=== PATIENT | male | born 1955 | race Caucasian/White ===

== ENCOUNTER 2020-11-13 15:34 | Emergency (ER) | payer MEDICARE ==
[~2020-11-13] VITALS: Ht 188 cm; Wt 95.2 kg
[2020-11-13] MEDS ORDERED: Cephalexin500 MG PO (16:39)
== END 2020-11-13 17:06 | disposition home or self-care (01) ==
LOC: ER 15:34
DX: S81.812A Laceration without foreign body, left lower leg, initial encounter (principal); Z88.5 Allergy status to narcotic agent; W29.3XXA Contact with powered garden and outdoor hand tools and machinery, initial encounter; Y92.821 Forest as the place of occurrence of the external cause
CPT/HCPCS: 12001; 90471; 90714; 99282-25; A9270

== ENCOUNTER 2020-11-28 16:01 | Emergency (ER) | payer MEDICARE ==
[~2020-11-28] VITALS: Ht 188 cm; Wt 99.8 kg
[~2020-11-28 16:01] MED LIST: Cephalexin500 MG PO
== END 2020-11-28 16:21 | disposition home or self-care (01) ==
LOC: ER 16:01
DX: S81.812D Laceration without foreign body, left lower leg, subsequent encounter (principal); W29.3XXD Contact with powered garden and outdoor hand tools and machinery, subsequent encounter

== ENCOUNTER 2024-06-25 15:49 | Emergency (ER) | payer OTHER ==
[~2024-06-25] VITALS: Ht 188 cm; Wt 90.7 kg
[2024-06-25 16:18] LABS: BASOPHILS ABSOLUTE AUTO 0.05 K/mm3 (0.00-0.23); BASOPHILS PERCENT AUTO 1 % (0-2); EOSINOPHILS ABSOLUTE AUTO 0.12 K/mm3 (0.00-0.68); EOSINOPHILS PERCENT AUTO 2 % (0-6); Hematocrit 40.5 % (37.0-53.0); Hemoglobin 12.8 g/dL (13.5-17.5); IMMATURE GRAN ABSOLUTE AUTO 0.01 K/mm3 (0.00-0.10); IMMATURE GRAN PERCENT AUTO 0 % (0-1); LYMPHOCYTES ABSOLUTE AUTO 1.71 K/mm3 (0.84-5.20); LYMPHOCYTES PERCENT AUTO 27 % (21-46); MONOCYTES ABSOLUTE AUTO 0.37 K/mm3 (0.16-1.47); MONOCYTES PERCENT AUTO 6 % (4-13); Mean Corpuscular HGB 29.9 pg (26.0-34.0); Mean Corpuscular HGB Conc 31.6 g/dL (31.5-36.5); Mean Corpuscular Volume 95 fL (80-100); Mean Platelet Volume 9.4 fL (9.1-12.4); NEUTROPHILS ABSOLUTE AUTO 3.99 K/mm3 (1.96-9.15); NEUTROPHILS PERCENT AUTO 64 % (41-73); Platelet Count 244 K/mm3 (150-400); RDW Coefficient Variation 14.9 % (11.7-14.2); RDW Standard Deviation 50.8 fL (35.1-46.3); Red Blood Cell Count 4.28 M/mm3 (4.30-5.90); White Blood Cell Count 6.25 K/mm3 (4.00-11.30)
[2024-06-25 16:34] LABS: C-REACTIVE PROTEIN, EXT RANGE 0.691 mg/dL (0.000-0.300)
[2024-06-25 16:36] LABS: Albumin, Blood 3.3 g/dL (3.4-5.0); Albumin/Globulin Ratio 0.7 (0.8-1.8); Bilirubin, Total 0.5 mg/dL (0.1-1.0); Bun/Creatinine Ratio 16.4 (12.0-20.0); Calcium, Blood 8.9 mg/dL (8.5-10.1); Creatinine, Blood 1.52 mg/dL (0.60-1.20); Globulin, Blood 4.5 g/dL (2.2-4.0); Potassium, Blood 3.8 mmol/L (3.5-5.5); Total Protein, Blood 7.8 g/dL (6.4-8.2)
[2024-06-25 18:00] VITALS: BP 158/106
== END 2024-06-25 18:12 | disposition home or self-care (01) ==
LOC: ER 15:49
PROVIDERS: Physician Assistant
DX: H54.61 Unqualified visual loss, right eye, normal vision left eye (principal); Z88.5 Allergy status to narcotic agent
CPT/HCPCS: 70450; 80053; 85025; 86140; 93005; 93010; 93971; 99284-25

== ENCOUNTER 2024-07-12 10:48 | Inpatient (IN) | payer OTHER ==
[~2024-07-12] VITALS: Ht 188 cm; Wt 96.0 kg
[2024-07-12] VITALS (35 sets, daily range): BP systolic 123–158; BP diastolic 97–128
[2024-07-12] MEDS ORDERED: Heparin Sodium 5000 Units/ML 1ML MDV IV ONE (12:05)
[2024-07-12] MEDS ORDERED: Midazolam HCl 1MG / ML 2ML Vial ONE ×2 (12:10→13:29)
[2024-07-12] MEDS ORDERED: FentaNYL Citrate 50 MCG/ML 2 ML Injection ONE ×2 (12:10→13:29)
[2024-07-12] MEDS ORDERED: Heparin Sodium 1000 Units/ML 10ML MDV ONE ×2 (12:11→14:39)
[2024-07-12] MEDS ORDERED: NS 1,000 ML IV ONE ×2 (12:11→14:39)
[2024-07-12 12:14] LABS: Calcium, Ionized (POC) 1.11 mmol/L (1.10-1.46); Chloride (POC) 107 mmol/L (98-108); Creatinine (POC) 1.8 mg/dL (0.8-1.3); Glucose (ISTAT POC) 119 mg/dL (70-99); Hemoglobin (POC) 12.6 g/dL (13.5-17.5); Potassium (POC) 4.6 mmol/L (3.5-5.5); Sodium (POC) 139 mmol/L (135-148); Total CO2 (POC) 21 mmol/L (21-32)
[2024-07-12 12:14] LABS: BASOPHILS ABSOLUTE AUTO 0.04 K/mm3 (0.00-0.23); BASOPHILS PERCENT AUTO 0 % (0-2); EOSINOPHILS ABSOLUTE AUTO 0.02 K/mm3 (0.00-0.68); EOSINOPHILS PERCENT AUTO 0 % (0-6); Hematocrit 38.3 % (37.0-53.0); Hemoglobin 12.1 g/dL (13.5-17.5); IMMATURE GRAN ABSOLUTE AUTO 0.05 K/mm3 (0.00-0.10); IMMATURE GRAN PERCENT AUTO 1 % (0-1); LYMPHOCYTES ABSOLUTE AUTO 1.45 K/mm3 (0.84-5.20); LYMPHOCYTES PERCENT AUTO 15 % (21-46); MONOCYTES ABSOLUTE AUTO 0.58 K/mm3 (0.16-1.47); MONOCYTES PERCENT AUTO 6 % (4-13); Mean Corpuscular HGB 30.2 pg (26.0-34.0); Mean Corpuscular HGB Conc 31.6 g/dL (31.5-36.5); Mean Corpuscular Volume 96 fL (80-100); Mean Platelet Volume 10.3 fL (9.1-12.4); NEUTROPHILS ABSOLUTE AUTO 7.29 K/mm3 (1.96-9.15); NEUTROPHILS PERCENT AUTO 77 % (41-73); Platelet Count 226 K/mm3 (150-400); RDW Coefficient Variation 15.1 % (11.7-14.2); RDW Standard Deviation 53.1 fL (35.1-46.3); Red Blood Cell Count 4.01 M/mm3 (4.30-5.90); White Blood Cell Count 9.43 K/mm3 (4.00-11.30)
[2024-07-12 12:35] LABS: Albumin/Globulin Ratio 0.7 (0.8-1.8); Bilirubin, Total 0.6 mg/dL (0.1-1.0); Bun/Creatinine Ratio 21.1 (12.0-20.0); Calcium, Blood 8.8 mg/dL (8.5-10.1); Creatinine, Blood 1.61 mg/dL (0.60-1.20); Globulin, Blood 4.3 g/dL (2.2-4.0); Potassium, Blood 4.7 mmol/L (3.5-5.5); Total Protein, Blood 7.3 g/dL (6.4-8.2)
[2024-07-12] MEDS ORDERED: Ticagrelor 90 MG TABLET ONE (12:50)
[2024-07-12] MEDS ORDERED: NS 1,000 ML IV SCH (12:50)
[2024-07-12] MEDS ORDERED: Ondansetron HCl 2 MG / ML 2ML Vial IV PRN (12:50)
[2024-07-12] MEDS ORDERED: Tirofiban HCL Monohydrate 3.75 MG/15 ML Vial ONE (12:50)
[2024-07-12] MEDS ORDERED: TraZODone HCl 50 MG Tab PO PRN (12:50)
[2024-07-12] MEDS ORDERED: Acetaminophen 325 MG TABLET PO PRN (12:55)
[2024-07-12] MEDS ORDERED: Tirofiban HCL M-Hyd/NS 250 ML IV ONE (13:15)
[2024-07-12] MEDS ORDERED: Furosemide 10 MG / ML 2ML Vial ONE (13:38)
[2024-07-12] MEDS ORDERED: Verapamil HCL 2.5 MG/ML 2ML Injection ONE (14:38)
[2024-07-12] MEDS ORDERED: Nitroglycerin 2 MG/20 ML BTL ONE (14:39)
[2024-07-12] MEDS ORDERED: NS 250 ML IV ONE (14:39)
[2024-07-12] MEDS ORDERED: Tirofiban HCL M-Hyd/NS 250 ML IV SCH (15:10)
[2024-07-12] MEDS ORDERED: Heparin Sodium,Porcine 5,000 UNIT/0.5 ML SDV SC ONE (15:29)
--- NOTE | 2024-07-12 15:47 | NUR ---
ADMIT PT ARRIVED TO ICU 12 VIA BED S/P ASSISTANT SITE MANAGER AT 1430. PT IS AWAKE, ALERT, AND ORIENTED, BUT DROWSEY. PT ANSWERS MOST QUESTIONS APPROPRIATELY. PT DENIES CHEST PAIN OR PRESSURE. TR BAND IN PLACE TO RIGHT RADIAL SITE. VITAL SIGNS STABLE. PT ON 4L O2 NC INITIALLY. TITRATED DOWN TO ROOM AIR. AGGRASTAT INFUSING AT 0.075 MCG/KG/MIN UPON ARRIVAL AND IS TO BE CONTINUED PER DR SPRAGUE. EKG DONE, REVIEWED AND PLAN OF CARE DISCUSSED WITH DR SPRAGUE AT BEDSIDE WITH PT AND PT DAUGHTER. PT ABLE TO USE URINAL TO VOID. WILL CONTINUE TO MONITOR.
[2024-07-12] MEDS ORDERED: Furosemide 10 MG/ML 4ML Vial IV ONE ×2 (16:55→22:50)
--- NOTE | 2024-07-12 16:56 | NUR ---
SOB PT COMPLAINS OF INCREASING SOB, SPO2 >94% ON 2L 02 NC. PT WITH WHEEZING AND CRACKLES NOTED ON AUSCULTATION. DR BARKER NOTIFIED. LASIX AND BD PROTOCOL ORDERED. WILL CONTINUE TO MONITOR.
[2024-07-12] MEDS ORDERED: Albuterol 2.5 MG/3 ML VIAL INH PRN (17:00)
--- NOTE | 2024-07-12 18:16 | NUR ---
SHIFT SUMMARY NO ACUTE CHANGES AT THIS TIME. PT REPORTS LESS SOB AFTER BREATHING TX AND LASIX. SEE PREVIOUS NOTES. VITAL SIGNS STABLE AT THIS TIME. AGGRASTAT CONTINUES INFUSING AT 0.075 MCG/KG/MIN. PT DENIES CHEST PAIN. TR BAND TO RIGHT RADIAL SITE REMAINS IN PLACE WITHOUT BRUISING, HEMATOMA, OR OOZING NOTED. WILL CONTINUE TO MONITOR AND REPORT OFF TO ONCOMING RN.
--- NOTE | 2024-07-12 19:18 | NUR ---
ASSESSMENT/ASSUMED CARE PT SITTING UP IN BED. A&O. DENIES PAIN OF ANY KIND AT THIS TIME. STATES,"I'M FEELING MUCH BETTER. ALMOST GOOD ENOUGH TO GO HOME". LUNGS COARSE THROUGHOUT ON 2 LITER O2 VIA NC. PT DENIES SOB. STATES,"THAT IS BETTER AFTER THE MEDS THEY GAVE ME THAT ARE MAKING ME PEE". DRY NONPRODUCTIVE COUGH AT TIMES. STATES,"SMOKERS COUGH". HEART RATE REGULAR SINUS TACH IN THE 100'S WITH PVC'S. HYPERTENSION NOTED. BT+ ABD SOFT AND NONTENDER. DENIES N/V. TAKING PO FLUIDS. IV 18G TO LEFT AC SALINE LOCKED. ABLE TO DRAW BLOOD AND FLUSH WITHOUT DIFFICULTY. IV RIGHT AC WITH AGGRASTAT AT 8.73 ML/HR UNTIL 0200. SITE CLEAR. PT VOIDING CLEAR YELLOW URINE. MOVING SELF IN BED. RIGHT WRIST WITH TR BAND ON. SITE CLEAR NO BLEEDING OR HEMATOMA NOTED. ARM BOARD ON.
--- NOTE | 2024-07-12 19:28 | NUR ---
TR BAND REMOVED 2 CC AIR. NO BLEEDING OR HEMATOMA
--- NOTE | 2024-07-12 20:16 | NUR ---
TR BAND REMOVED 2 CC AIR FROM RIGHT WRIST TR BAND. NO BLEEDING OR HEMATOMA NOTED
--- NOTE | 2024-07-12 20:55 | NUR ---
TR BAND REMOVED 2 CC AIR FROM TR BAND. NO BLEEDING OR HEMATOMA
[2024-07-12] MEDS ORDERED: Famotidine 10 MG/ML 2ML Vial IV SCH (21:00)
[2024-07-12] MEDS ORDERED: Docusate Sodium 100 MG Cap PO SCH (21:00)
[2024-07-12] MEDS ORDERED: Sennosides 8.6 MG Tab PO SCH (21:00)
--- NOTE | 2024-07-12 22:09 | NUR ---
TR BAND REMOVED 2 CC AIR FROM RIGHT WRIST TR BAND. NO BLEEDING OR HEMATOMA NOTED
--- NOTE | 2024-07-12 22:34 | NUR ---
HYPERTENSION CALL TO DR SPRAGUE REGARDING HYPERTENSION. ORDER OBTAINED FOR METOPROLOL XL 25MG DAILY FIRST DOSE NOW.
[2024-07-12] MEDS ORDERED: Metoprolol Succinate 25 MG TABCR PO SCH (22:35)
--- NOTE | 2024-07-12 22:49 | NUR ---
SOB/TR BAND PT MED WITH METPROLOL XL 25 MG FOR HYPERTENSION. C/O SOB. RT CALLED FOR BREATHING TX. LUNGS CONT COARSE. LASIX 40 MG ORDERED. RIGHT TR BAND 1.5 CC AIR REMOVED. BALLOON COMPLETELY DEFLATED. NO BLEEDING OR HEMATOMA.
[2024-07-13] VITALS (87 sets, daily range): BP systolic 96–151; BP diastolic 55–121
--- NOTE | 2024-07-13 02:16 | NUR ---
AGGRASTAT OFF. TR BAND REMOVED AND DRSG APPLIED. PT SITTING UP IN BED EATING A SNACK.
[2024-07-13 03:15] LABS: BASOPHILS ABSOLUTE AUTO 0.04 K/mm3 (0.00-0.23); BASOPHILS PERCENT AUTO 0 % (0-2); EOSINOPHILS PERCENT AUTO 0 % (0-6); Hematocrit 34.7 % (37.0-53.0); Hemoglobin 11.4 g/dL (13.5-17.5); IMMATURE GRAN ABSOLUTE AUTO 0.05 K/mm3 (0.00-0.10); IMMATURE GRAN PERCENT AUTO 0 % (0-1); LYMPHOCYTES ABSOLUTE AUTO 1.13 K/mm3 (0.84-5.20); LYMPHOCYTES PERCENT AUTO 9 % (21-46); MONOCYTES ABSOLUTE AUTO 1.11 K/mm3 (0.16-1.47); MONOCYTES PERCENT AUTO 8 % (4-13); Mean Corpuscular HGB 30.6 pg (26.0-34.0); Mean Corpuscular HGB Conc 32.9 g/dL (31.5-36.5); Mean Corpuscular Volume 93 fL (80-100); Mean Platelet Volume 10.3 fL (9.1-12.4); NEUTROPHILS ABSOLUTE AUTO 10.94 K/mm3 (1.96-9.15); NEUTROPHILS PERCENT AUTO 82 % (41-73); Platelet Count 222 K/mm3 (150-400); RDW Coefficient Variation 15.2 % (11.7-14.2); RDW Standard Deviation 51.9 fL (35.1-46.3); Red Blood Cell Count 3.72 M/mm3 (4.30-5.90); White Blood Cell Count 13.27 K/mm3 (4.00-11.30)
[2024-07-13 03:35] LABS: Albumin, Blood 2.8 g/dL (3.4-5.0); Albumin/Globulin Ratio 0.7 (0.8-1.8); Bilirubin, Total 0.7 mg/dL (0.1-1.0); Bun/Creatinine Ratio 19.2 (12.0-20.0); Calcium, Blood 8.4 mg/dL (8.5-10.1); Creatinine, Blood 1.56 mg/dL (0.60-1.20); Globulin, Blood 3.9 g/dL (2.2-4.0); Potassium, Blood 3.6 mmol/L (3.5-5.5); Total Protein, Blood 6.7 g/dL (6.4-8.2)
--- NOTE | 2024-07-13 05:10 | NUR ---
SHIFT SUMMARY PT SITTING UP IN BED WATCHING TV. DENIES PAIN OR DISCOMFORT. STARTED ON METOPROLOL XL DURING THE NIGHT FOR HYPERTENSION WITH GOOD RESULTS. LUNGS CONT COARSE ON 2 LITERS O2 VIA NC. PT MED WITH LASIX 40 MG DUE TO SOB AND SPEAKING IN ONE WORDS SENTENCES DUE TO DYSPNEA. IMPROVED BREATHING AFTER LASIX. RESP EVEN AND NONLABORED. PRODUCTIVE COUGH WITH BLOOD TINGED SPUTUM. HEART RATE 90-110'S. PT VOIDING CLEAR YELLOW URINE. AGGRASTAT STOPPED AT 0200. TR BAND TO RIGHT WRIST RECOVERED, NO BLEEDING OR HEMATOMA NOTED. PT TAKING PO WITHOUT DIFFICULTY. REPORT TO ON COMING NURSE
[2024-07-13] MEDS ORDERED: Aspirin 81 MG Chew PO SCH (07:00)
[2024-07-13] MEDS ORDERED: Ticagrelor 90 MG TABLET PO SCH (07:00)
[2024-07-13] MEDS ORDERED: Atorvastatin 40 MG Tab PO SCH (09:00)
[2024-07-13] MEDS ORDERED: Digoxin 0.25 MG/ML 2ML Amp IV ONE (11:50)
--- NOTE | 2024-07-13 11:52 | NUR ---
RHYTHM CHANGE PT SITTING UP IN CHAIR FOR OVER 1 HOUR. PT THEN WITH RHYTHM CHANGE AND HR 160'S. ONCE PT BACK TO BED, VAGAL MANUVERS, AND CAROTID MASSAGE DONE PER DR SPRAGUE AND EKG DONE. EKG SHOWS AFIB RVR. DR SPRAGUE NOTIFIED AND ORDERS RECIEVED FOR IV DIGOXIN AND STATES HE WILL COME SEE PT IN A WHILE. PT SBP 90'S. PT REMAINS AWAKE AND ALERT. DENIES CHEST PAIN.
--- NOTE | 2024-07-13 15:02 | NUR ---
PT'S SON IN THE ROOM, STANDING UPON MY ENTERING. HAD JUST URINATED AND IT LEAKED AROUND THE CONDOM CATH. PT ASKED TO SIT DOWN WHILE EVERYTHING INCLUDING HIM, BE CLEANED UP. PT IS ABLE TO ASSIST WITH CLEAN UP AND NEW CONDOM CATH REPLACED. PT REMINDED THAT HE SHOULDN'T BE UP AND ABOUT WITHOUT ASKING FOR ASSISTANCE, HE HAD DISCONNECTED HIS BP CUFF AND PULSE OXIMETRY. ENCOURAGED TO USE HIS CALL LIGHT AND ASK FOR ASSISTANCE EVEN FOR JUST THE CORDS. PT AGREED. SON ACKNOWLEDGED INSTRUCTIONS. PRIMARY RN NOTIFIED OF SITUATION.
--- NOTE | 2024-07-13 17:36 | NUR ---
SHIFT SUMMARY PT HAS REMAINED AWAKE, ALERT, AND ORIENTED THIS SHIFT. PT FORGETFUL AT TIMES AND NEEDS REDIRECTION, BUT HAS OTHERWISE BEEN APPROPRIATE THIS SHIFT. PT IMPULSIVE AT TIMES WANTING TO GET OOB OR CHAIR. PT HAS DENIED CHEST PAIN THIS SHIFT, INCLUDING DURING EPISODE OF TACHYCARDIA. PT WITHOUT FURTHER EPISODES OF TACHYCARDIA THIS SHIFT. SEE PREVIOUS NN. VITAL SIGNS STABLE AT THIS TIME, PT ON ROOM AIR. PT TAKING IN PO INTAKE WELL. PT WITH CONDOM CATH IN PLACE AT THIS TIME WITH YELLOW URINE OUTPUT NOTED. IV'S SALINE LOCKED. PT FAMILY AT BEDSIDE THIS AFTERNOON. RIGHT RADIAL ACCESS SITE REMAINS WITH DRESSING C/D/I AND ARMBOARD IN PLACE. WILL CONTINUE TO MONITOR AND REPORT OFF TO ONCOMING RN.
[2024-07-13] MEDS ORDERED: Nicotine 21 MG PATCH TOP SCH (19:45)
[2024-07-13] MEDS ORDERED: Apixaban 5 MG Tab PO SCH (21:00)
[2024-07-13 21:18] LABS: U Amphetamine Screen Not Detected; U Barbituate Screen Not Detected; U Benzodiazapine Screen Not Detected; U Buprenorphine Screen Not Detected; U Cannabinoids Screen Not Detected; U Cocaine Screen Not Detected; U Methadone Screen Not Detected; U Methamphetamine Screen Not Detected; U Opiates Screen Not Detected; U Oxycodone Screen Not Detected; U Phencyclidine Screen Not Detected
[2024-07-13] MEDS ORDERED: LORazepam 2 MG/ML 1ML Injection IV ONE (21:40)
--- NOTE | 2024-07-13 22:31 | NUR ---
ASSUME CARE: RECIEVED REPORT FROM ANGELO JIMENES. DURING SHIFT ASSESSMENT PT A/Ox3 AND PLEASANT W/CARE. PT WANTING TO GO OUT AND SMOKE, ORDER FOR NICOTINE PATCH GIVEN. PT BECAME INCREASINGLY AGITATED AND PULLING AT LINES AND CORDS. PT BECAME MORE CONFUSED, UNABLE TO TELL US WHERE HE IS SAYING HE IS IN A HOUSE AND THAT THAT HE WANTS TO GO OUTSIDE. ORDERS FOR ONE TIME DOSE OF ATIVAN GIVEN PER DR. BROOKS. DR. DURAND CALLED ABOUT HR GOING TO 160s AND SELF RESOLVING, NO NEW ORDERS GIVEN. PT BEGAN TO HAVE HR 80s-170s, EKG TAKEN SHOWING AFIB W/RVR DR. SHELTON CALLED AND ORDERS FOR AMIODERONE GIVEN. SPO2 >90% INITIALLY ON RA, NOW ON 3L NC FOR DESAT W/SLEEP AND EXERTION. WILL UPDATE NEEDED.
[2024-07-13 23:24] LABS: Base Excess Venous -1.4 mmol/L; PCO2 Venous 35.4 mmHg (38-42); pH Blood Venous 7.42 (7.34-7.37)
[2024-07-13 23:32] LABS: BASOPHILS ABSOLUTE AUTO 0.04 K/mm3 (0.00-0.23); BASOPHILS PERCENT AUTO 0 % (0-2); EOSINOPHILS ABSOLUTE AUTO 0.02 K/mm3 (0.00-0.68); EOSINOPHILS PERCENT AUTO 0 % (0-6); Hematocrit 34.1 % (37.0-53.0); Hemoglobin 11.2 g/dL (13.5-17.5); IMMATURE GRAN ABSOLUTE AUTO 0.06 K/mm3 (0.00-0.10); IMMATURE GRAN PERCENT AUTO 1 % (0-1); LYMPHOCYTES ABSOLUTE AUTO 1.64 K/mm3 (0.84-5.20); LYMPHOCYTES PERCENT AUTO 14 % (21-46); MONOCYTES PERCENT AUTO 8 % (4-13); Mean Corpuscular HGB 30.6 pg (26.0-34.0); Mean Corpuscular HGB Conc 32.8 g/dL (31.5-36.5); Mean Corpuscular Volume 93 fL (80-100); Mean Platelet Volume 10.4 fL (9.1-12.4); NEUTROPHILS ABSOLUTE AUTO 9.39 K/mm3 (1.96-9.15); NEUTROPHILS PERCENT AUTO 77 % (41-73); Platelet Count 225 K/mm3 (150-400); RDW Standard Deviation 51.5 fL (35.1-46.3); Red Blood Cell Count 3.66 M/mm3 (4.30-5.90); White Blood Cell Count 12.15 K/mm3 (4.00-11.30)
[2024-07-13 23:55] LABS: Calcium, Blood 7.9 mg/dL (8.5-10.1); Creatinine, Blood 1.52 mg/dL (0.60-1.20); Magnesium, Blood 1.9 mg/dL (1.6-2.4); Potassium, Blood 3.7 mmol/L (3.5-5.5)
[2024-07-14] VITALS (52 sets, daily range): BP systolic 82–136; BP diastolic 62–119
[2024-07-14] MEDS ORDERED: Melatonin 5 MG Tablet PO ONE (00:50)
[2024-07-14] MEDS ORDERED: QUEtiapine Fumarate 25 MG Tab PO ONE (00:50)
--- NOTE | 2024-07-14 00:50 | NUR ---
UPDATE: PT INCREASING AGITATION, NOT REDIRECTABLE, PULLING AT LINES/CORDS, ATTEMPTING TO GET OUT OF BED STATING HE WANTS TO SMOKE, PINCHING AND HITTING AT STAFF. PT PLACED IN BILATERAL SOFT RESTRAINTS INITIALLY BUT BROKE OUT OF HIS RESTRAINTS SO TUFF CUFFS PLACED. DR. NARANJO NOTIFIED OF SOB, UNEQUAL PUPILS, PT STATED HE HAD A DETACHED RETINA A FEW WEEKS AGO, CHANGE IN RYTHM AND HR, DR. NARANJO CAME TO BEDSIDE TO EVALUATE. ORDERS GIVEN, CHEST XRAY PERFORM. WILL UPDATE NEEDED.
[2024-07-14] MEDS ORDERED: OLANZapine 10 MG Vial IM ONE ×2 (02:35→04:35)
--- NOTE | 2024-07-14 03:09 | NUR ---
UPDATE: PT CONTINUES TO BECOME INCREASINGLY AGITATED, CONFUSED, PULLING OUT IVs, AND CORDS, WANTING TO GET UP AND GO HOME DESPITE SEROQUEL AND MELATONIN MEDICATION. PT STATING " YOU FUCKING BITCH" WHEN TRYING TO REDIRECT. DR. NARANJO UPDATED ON INCREASED AGITATION, ORDER RECIEVED FOR IM ZYPREXA. RESTRAINTS REMAIN IN PLACE. WILL UPDATE NEEDED.
[2024-07-14 03:19] LABS: BASOPHILS ABSOLUTE AUTO 0.04 K/mm3 (0.00-0.23); BASOPHILS PERCENT AUTO 0 % (0-2); EOSINOPHILS ABSOLUTE AUTO 0.01 K/mm3 (0.00-0.68); EOSINOPHILS PERCENT AUTO 0 % (0-6); Hematocrit 33.3 % (37.0-53.0); Hemoglobin 11.1 g/dL (13.5-17.5); IMMATURE GRAN ABSOLUTE AUTO 0.04 K/mm3 (0.00-0.10); IMMATURE GRAN PERCENT AUTO 0 % (0-1); LYMPHOCYTES ABSOLUTE AUTO 1.37 K/mm3 (0.84-5.20); LYMPHOCYTES PERCENT AUTO 12 % (21-46); MONOCYTES ABSOLUTE AUTO 1.17 K/mm3 (0.16-1.47); MONOCYTES PERCENT AUTO 10 % (4-13); Mean Corpuscular HGB 30.7 pg (26.0-34.0); Mean Corpuscular HGB Conc 33.3 g/dL (31.5-36.5); Mean Corpuscular Volume 92 fL (80-100); Mean Platelet Volume 9.9 fL (9.1-12.4); NEUTROPHILS ABSOLUTE AUTO 9.19 K/mm3 (1.96-9.15); NEUTROPHILS PERCENT AUTO 78 % (41-73); Platelet Count 202 K/mm3 (150-400); RDW Coefficient Variation 14.9 % (11.7-14.2); RDW Standard Deviation 51.2 fL (35.1-46.3); Red Blood Cell Count 3.61 M/mm3 (4.30-5.90); White Blood Cell Count 11.82 K/mm3 (4.00-11.30)
[2024-07-14 03:36] LABS: Albumin, Blood 2.6 g/dL (3.4-5.0); Albumin/Globulin Ratio 0.7 (0.8-1.8); Bilirubin, Total 1.1 mg/dL (0.1-1.0); Calcium, Blood 7.9 mg/dL (8.5-10.1); Creatinine, Blood 1.67 mg/dL (0.60-1.20); Globulin, Blood 3.8 g/dL (2.2-4.0); Magnesium, Blood 2.2 mg/dL (1.6-2.4); Potassium, Blood 3.6 mmol/L (3.5-5.5); Total Protein, Blood 6.4 g/dL (6.4-8.2)
--- NOTE | 2024-07-14 06:12 | NUR ---
SHIFT SUMMARY: PT CONTINUES WITH BEHAVIOR DECRIBED IN PRIOR NOTES. DR. NARANJO CALLED AND UPDATED WITH PT BEHAVIOR AND SECOND DOSE OF ZYPREXA GIVEN WITH NO AFFECT, DR. NARANJO NOTIFIED, AWAITING ORDERS AT THIS TIME. PT IN AND OUT OF SINUS TACH AND AFIB W/ RVR. AMIO GTT RUNNING PER EMAR. DR. NARANJO ALSO CALLED ABOUT PT BNP, NO ORDERS RECIEVED. RESTRAINTS REMAIN IN PLACE. CALL LIGHT IN REACH AND BED IN LOWEST POSTION, BED ALARM ON. WILL REPORT TO ONCOMING RN.
--- NOTE | 2024-07-14 06:51 | NUR ---
PT IN 4 POINT TOUGH CUFFS, THREATENED TO PUNCH RN WHILE CHANGING DRESSING, AND BALLED UP LEFT HAND INTO A FIST.
[2024-07-14] MEDS ORDERED: Clopidogrel Bisulfate 75 MG Tab PO ONE (09:00)
[2024-07-14] MEDS ORDERED: Digoxin 0.25 MG Tab PO SCH (09:00)
[2024-07-14] MEDS ORDERED: Potassium Chl 10MEQ/Water100ML 100 ML IV ONE (09:35)
--- NOTE | 2024-07-14 11:11 | NUR ---
SHIFT ASSESSMENT ASSUMED CARE OF PT @ 0700, BEDSIDE REPORT RECEIVED FROM [facility] NURSE. PT INITIALLY AGITATED, IN 4 POINT RESTRAINTS. A&OX3, AGITATED BUT FOLLOWING COMMANDS. PRECEDEX INITIATED AND 4 POINTS REMOVED. TRIALED PRECEDEX FOR A COUPLE HOURS BUT PT BECOMING HYPOTENSIVE AND MORE CONFUSED. PRECEDEX CURRENTLY OFF, PT IMPULSIVE BUT REDIRECTABLE. UP IN BEDSIDE CHAIR, C/O BEING "GROGGY". DENIES CP/ SOB. NSR ON SUPERVISOR WEAVING. ON 2-5LPM O2 VIA NC, HAS SOME SLEEP APNEA. INCONTINENT OF URINE AND STOOL. FAMILY UPATED AT BEDSIDE.
[2024-07-14] MEDS ORDERED: Furosemide 10 MG / ML 2ML Vial IV ONE (12:15)
[2024-07-14] MEDS ORDERED: Potassium Chloride 10 Meq Tablet SA PO SCH (17:00)
--- NOTE | 2024-07-14 18:02 | NUR ---
SHIFT SUMMARY PT A&OX4. PLEASANT AND COOPERATIVE WITH CARE. UP TO BEDSIDE CHAIR FOR MOST OF THE DAY. OFF OF PRECEDEX, NO PRN MEDS GIVEN TODAY. TOLERATING PO INTAKE WELL. USING CALL LIGHT APPROPRIATELY. DENIES CP, DOES HAVE MOMENTS OF SOB WHEN AWAKING FROM NAP, PROBABLE SLEEP APNEA. REMAINS ON 4LPM O2 VIA NC. NO OTHER ACUTE CHANGES NOTED.
[2024-07-14] MEDS ORDERED: Nicotine 21 MG PATCH TOP SCH (20:00)
[2024-07-14] MEDS ORDERED: QUEtiapine Fumarate 50 MG TAB PO SCH (21:00)
--- NOTE | 2024-07-14 22:09 | NUR ---
ASSUMED CARE: PT SLEEPING IN CHAIR ON ARRIVAL TO SHIFT, PLEASANT AND COOPERATIVE W/CARE WHEN AWAKENED FOR MED ADMINISTRATION. PT A/Ox3 STATES HE SLEPT ALL DAY TODAY AND HAD FAMILY VISIT TODAY. VSS STABLE, SPO2>90% ON 5L NC, NO COMPLAINTS OF SOB OR PAIN. PT IN SR W/AMIO GTT RUNNING, RATE 70s. PT CURRENTLY SLEEPING IN BED, WITH BED ALARM ON. CALL LIGHT IN REACH AND BED IN LOWEST POSITION WITH BED ALARM ON.
[2024-07-15] VITALS (7 sets, daily range): BP systolic 101–126; BP diastolic 75–95
[2024-07-15 03:22] LABS: BASOPHILS ABSOLUTE AUTO 0.04 K/mm3 (0.00-0.23); BASOPHILS PERCENT AUTO 0 % (0-2); EOSINOPHILS ABSOLUTE AUTO 0.12 K/mm3 (0.00-0.68); EOSINOPHILS PERCENT AUTO 1 % (0-6); Hematocrit 33.8 % (37.0-53.0); Hemoglobin 11.2 g/dL (13.5-17.5); IMMATURE GRAN ABSOLUTE AUTO 0.05 K/mm3 (0.00-0.10); IMMATURE GRAN PERCENT AUTO 1 % (0-1); LYMPHOCYTES ABSOLUTE AUTO 1.65 K/mm3 (0.84-5.20); LYMPHOCYTES PERCENT AUTO 15 % (21-46); MONOCYTES ABSOLUTE AUTO 0.98 K/mm3 (0.16-1.47); MONOCYTES PERCENT AUTO 9 % (4-13); Mean Corpuscular HGB 30.7 pg (26.0-34.0); Mean Corpuscular HGB Conc 33.1 g/dL (31.5-36.5); Mean Corpuscular Volume 93 fL (80-100); NEUTROPHILS ABSOLUTE AUTO 7.91 K/mm3 (1.96-9.15); NEUTROPHILS PERCENT AUTO 74 % (41-73); Platelet Count 229 K/mm3 (150-400); RDW Coefficient Variation 15.3 % (11.7-14.2); RDW Standard Deviation 51.8 fL (35.1-46.3); Red Blood Cell Count 3.65 M/mm3 (4.30-5.90); White Blood Cell Count 10.75 K/mm3 (4.00-11.30)
[2024-07-15 03:56] LABS: Albumin, Blood 2.4 g/dL (3.4-5.0); Albumin/Globulin Ratio 0.6 (0.8-1.8); Bilirubin, Total 0.6 mg/dL (0.1-1.0); Calcium, Blood 8.2 mg/dL (8.5-10.1); Creatinine, Blood 1.67 mg/dL (0.60-1.20); Globulin, Blood 3.9 g/dL (2.2-4.0); Potassium, Blood 3.8 mmol/L (3.5-5.5); Total Protein, Blood 6.3 g/dL (6.4-8.2)
--- NOTE | 2024-07-15 05:19 | NUR ---
SHIFT SUMMARY: PT A/Ox3 AND PLEASANT W/CARE T/O THE NIGHT. PT SLEPT WELL STATING HE FEELS SO MUCH BETTER. VSS MAP>65, AMIO GTT DC'D AT 2315, PT IN SR RATE 80s, SHORT RUN OF AFIB RVR W/COUGHING, NO COMPLAINTS OF CHEST PAIN OR SOB. SPO2>90% ON 5 L NC. PT CONT OF URINE AND ABLE TO USE THE URINAL IND, WELL SELF REPOSITION IN BED. PT USED THE CALL LIGHT APPROPRIATELY T/O THE NIGHT. NO OTHER ACUTE EVENTS. WILL REPORT TO ONCOMING RN.
[2024-07-15] MEDS ORDERED: Clopidogrel Bisulfate 75 MG Tab PO SCH (09:00)
[2024-07-15] MEDS ORDERED: Furosemide 10 MG / ML 2ML Vial IV SCH (09:00)
[2024-07-15] MEDS ORDERED: Amiodarone HCl 200 MG Tab PO SCH (09:00)
[2024-07-15] MEDS ORDERED: Fluticasone 0.05% Nasal Spray SCH (09:00)
[2024-07-15] MEDS ORDERED: Spironolactone 25 MG Tab PO SCH (09:00)
[2024-07-15 10:02] LABS: SARS-Cov-2 (COVID-19) PCR, MMC NEGATIVE (NEGATIVE)
--- NOTE | 2024-07-15 10:41 | NUR ---
ASSUMPTION OF CARE PT A&OX4, CALM AND COOPERATIVE WITH CARE. TOLERATING PO INTAKE WELL. AMBULATES WITH SBA. DENIES CP. C/O SOB, LS COARSE, STARTING ON DAILY LASIX. ON 4LPM O2 VIA NC c SATS >90%. SINUS RYTHM, PO AMIODARONE GIVEN. WILL MOVE TO PCU, PLAN ON PROBABLE D/C TOMORROW PER CARDIOLOGY.
--- NOTE | 2024-07-15 12:06 | NUR ---
TRANSFER TO PCU 2 PT ARRIVED TO PCU 2 AT APPROXIMATELY 1115 VIA WHEELCHAIR. PT TRANSFERED TO HOSPITAL BED WITH SBA. A&Ox4, CALLS AND COMMUNICATES NEEDS APPROPRIATELY. ORIENTED TO CALL LIGHT/UNIT. BP STABLE, SINUS 90's, DENIES CP/PRESSURE. SpO2> 92% 2L VIA NC, DENIES SOB. R RADIAL SITE WNL, ARM BOARD IN PLACE. BED IN LOWEST POSITION, CALL LIGHT IN REACH.
--- NOTE | 2024-07-15 16:52 | NUR ---
SHIFT SUMMARY SEE PREVIOUS NOTE. NO ACUTE CHANGES. A&Ox4, CALLS AND COMMUNICATES NEEDS APPROPRIATELY. VSS. R RADIAL SITE REMAINED WNL, ARM BOARD IN PLCAE. SBA IN ROOM. CONTINENT OF URINE, NO BM THIS SHIFT. NO C/O PAIN. NO OTHER EVENTS, WILL REPORT TO ONCOMING RN.
--- NOTE | 2024-07-15 21:33 | NUR ---
ASSUMPTION OF CARE AFTER RECEIVING REPORT FROM KAM FREY, THIS RN ASSUMED CARE AT APPROX 1915. PATIENT ALERT AND ORIENTED X4. COMMUNICATES NEEDS EFFECTIVELY. MOVES ALL EXTREMITIES EQUALLY - IS A SBA FOR CORD, DEVICE MANAGEMENT PRN. REPOSITIONS HIMSELF INDEPENDENTLY IN BED. PERRLA. TELEMETRY SHOWING SINUS 80s. BP STABLE, SBP 100s. MAP >65. DENIES CHEST PAIN, PRESSURE. R RADIAL SITE FROM ANGIO 07/12 WNL - SOFT, NONTENDER. NO HEMATOMA. ARMBOARD IN PLACE. PREVIOUS TEGADERM DX PEELING OFF AT EDGES, DX CHANGED THIS EVENING. OTHERWISE C/D/I. ON 2L VIA NC, SATs >90%. NICOTINE PATCH IN PLACE CEDS - INFREQUENT CONGESTED, NONPRODUCTIVE COUGH. CALL LIGHT IN REACH.
[2024-07-16] VITALS (7 sets, daily range): BP systolic 114–140; BP diastolic 84–98
[2024-07-16 04:23] LABS: BASOPHILS ABSOLUTE AUTO 0.04 K/mm3 (0.00-0.23); BASOPHILS PERCENT AUTO 0 % (0-2); EOSINOPHILS PERCENT AUTO 1 % (0-6); IMMATURE GRAN ABSOLUTE AUTO 0.06 K/mm3 (0.00-0.10); IMMATURE GRAN PERCENT AUTO 1 % (0-1); LYMPHOCYTES ABSOLUTE AUTO 1.61 K/mm3 (0.84-5.20); LYMPHOCYTES PERCENT AUTO 16 % (21-46); MONOCYTES ABSOLUTE AUTO 0.84 K/mm3 (0.16-1.47); MONOCYTES PERCENT AUTO 8 % (4-13); Mean Corpuscular HGB 30.2 pg (26.0-34.0); Mean Corpuscular HGB Conc 31.6 g/dL (31.5-36.5); Mean Corpuscular Volume 96 fL (80-100); Mean Platelet Volume 10.5 fL (9.1-12.4); NEUTROPHILS ABSOLUTE AUTO 7.67 K/mm3 (1.96-9.15); NEUTROPHILS PERCENT AUTO 74 % (41-73); Platelet Count 282 K/mm3 (150-400); RDW Coefficient Variation 15.5 % (11.7-14.2); RDW Standard Deviation 53.6 fL (35.1-46.3); Red Blood Cell Count 3.98 M/mm3 (4.30-5.90); White Blood Cell Count 10.32 K/mm3 (4.00-11.30)
[2024-07-16 04:39] LABS: Albumin, Blood 2.5 g/dL (3.4-5.0); Albumin/Globulin Ratio 0.6 (0.8-1.8); Bilirubin, Total 0.5 mg/dL (0.1-1.0); Bun/Creatinine Ratio 20.7 (12.0-20.0); Calcium, Blood 8.7 mg/dL (8.5-10.1); Creatinine, Blood 1.88 mg/dL (0.60-1.20); Globulin, Blood 4.3 g/dL (2.2-4.0); Potassium, Blood 4.1 mmol/L (3.5-5.5); Total Protein, Blood 6.8 g/dL (6.4-8.2)
--- NOTE | 2024-07-16 05:38 | NUR ---
SHIFT SUMMARY NO ACUTE EVENTS SINCE ASSUMPTION OF CARE. PATIENT SLEPT INTERMITTENTLY T/O NIGHT - EASILY AROUSABLE WITH VERBAL STIMULI. AFEBRILE. DENIES PAIN. TELEMETRY SHOWING SINUS 80s. BP STABLE, SBP 100s-120s. MAP >65. DENIES CHEST PAIN, PRESSURE. ON 2L VIA NC WITH SLEEP. TOLERATES ROOM AIR WHILE AWAKE, SATs >90%. CONGESTED, NONPRODUCTIVE COUGH. REPOSITIONS HIMSELF INDEPENDENTLY IN BED. VOIDING. X1 INCONTINENT BM - IS CURRENTLY SHOWERING INDEPENDENTLY. WILL CONTINUE TO MONITOR AND REPORT TO ONCOMING RN.
--- NOTE | 2024-07-16 09:45 | NUR ---
ASSUMPTION OF CARE FROM PATRIC FREY AROUND 0715 TODAY. THE PT WAS AWAKE LAYING IN BED ON 1LNC. HE HAD GOTTEN BACK FROM A SHOWER AND WAS FEELING WINDED SO HE WAS PACED ON 1L NC. WHILE ALSEEP THE PT NEEDS 1-2L NC TO MAINTAIN SP02 >90%. WHEN AWAKE HE TOLERATES RA, W/ SP02 >90%. ON TELE THE PT IS SR W/ BBB 80'S-90'S. BP STABLE. THE PT WAS TRANSFERED TO THE CHAIR WITH JUST SUPERVISION AND LINE MANAGMENT. HE DENIES N/T, DIZZINESS, OR HEADACHE. HIS MORNING LASIX WAS HELD D/T WORSENING KIDNEY FUNCTION. THE PT'S LUNG SOUNDS ARE WITH COARSE CRACKLES T/O. THIS WAS DISSCUSED WITH DR. SALDANA AND HE TOLD THE BREAK TK Ramon, THAT HE WOULD FOLLOW UP WITH CARDIOLOGY AND TO HOLD THE LASIX AT THIS TIME. CALL LIGHT IN REACH. SEE NOTES FOR ANY UPDATES.
--- NOTE | 2024-07-16 16:22 | NUR ---
DR. SALDANA STATED TO GIVE EVENING DOSE OF LASIX.
--- NOTE | 2024-07-16 17:33 | NUR ---
SHIFT SUMMARY THE PT IS A&OX4, CALLS APPROPRAITELY, AND IS A 1P SBA IN THE ROOM. ON TELE HE IS SR, BP STABLE. HE REMAINS ON RA WHILE AWAKE AND NEEDS 1-2LNC WHILE ASLEEP OR NAPPING. BL OXYGEN IS RA. HIS CREATINE WAS BUMPED THIS MORNING AND HIS MORNING LASIX WAS HELD PER DR. SALDANA. FAMILY AT BEDSIDE AND UPDATED ON CARE. THE [id number] PLANS TO SHEET ROCK SANDER THE PT WHEN IT IS CLOSER TO DISCHARGE AND WOULD LIKE TO BE NOTIFIED SOON POSSIBLE. SHE STATED SHE WILL CALL IN THE MORNING FOR ANOTHER UPDATE BECAUSE SHE WORKS TOMORROW. NO ACUTE EVENTS, SEE NOTES FOR ANY UPDATES.
--- NOTE | 2024-07-16 19:30 | NUR ---
Shift report- Received report from Enedelia linn RN. Who gave brief updates about the patient regarding his day. States morning dose of Lasix was held due to kidney function, but evening dose was given. Possible patient discharge tomorrow, and his daughter would be the ride. She will be calling tomorrow around 10am.
[2024-07-17 03:02] VITALS: BP 139/94
[2024-07-17 03:44] LABS: BASOPHILS ABSOLUTE AUTO 0.05 K/mm3 (0.00-0.23); BASOPHILS PERCENT AUTO 1 % (0-2); EOSINOPHILS ABSOLUTE AUTO 0.13 K/mm3 (0.00-0.68); EOSINOPHILS PERCENT AUTO 1 % (0-6); Hematocrit 36.3 % (37.0-53.0); Hemoglobin 11.5 g/dL (13.5-17.5); IMMATURE GRAN ABSOLUTE AUTO 0.04 K/mm3 (0.00-0.10); IMMATURE GRAN PERCENT AUTO 0 % (0-1); LYMPHOCYTES ABSOLUTE AUTO 1.63 K/mm3 (0.84-5.20); LYMPHOCYTES PERCENT AUTO 16 % (21-46); MONOCYTES ABSOLUTE AUTO 0.91 K/mm3 (0.16-1.47); MONOCYTES PERCENT AUTO 9 % (4-13); Mean Corpuscular HGB 29.9 pg (26.0-34.0); Mean Corpuscular HGB Conc 31.7 g/dL (31.5-36.5); Mean Corpuscular Volume 94 fL (80-100); Mean Platelet Volume 9.9 fL (9.1-12.4); NEUTROPHILS ABSOLUTE AUTO 7.48 K/mm3 (1.96-9.15); NEUTROPHILS PERCENT AUTO 73 % (41-73); Platelet Count 291 K/mm3 (150-400); RDW Coefficient Variation 15.6 % (11.7-14.2); RDW Standard Deviation 53.7 fL (35.1-46.3); Red Blood Cell Count 3.85 M/mm3 (4.30-5.90); White Blood Cell Count 10.24 K/mm3 (4.00-11.30)
[2024-07-17 04:04] LABS: Bun/Creatinine Ratio 22.5 (12.0-20.0); Calcium, Blood 8.7 mg/dL (8.5-10.1); Creatinine, Blood 1.91 mg/dL (0.60-1.20); Potassium, Blood 5.1 mmol/L (3.5-5.5)
--- NOTE | 2024-07-17 05:27 | NUR ---
Shift Summary- Patient had a good night- VSS. Used 2L of oxygen while asleep. Around 3am, patient woke up and got dressed in his own clothes, ready to start his day and "go get a coffee", coffee provided to him from the unit- and patient made comfortable in room. Labs back showing worsening kidney function (creatinine 1.91, BUN 43, and GFR 37). Patient had a non-symptomatic 5 beat run of v-tach prior to 3am- pt was asleep at this time.
[2024-07-17 07:51] VITALS: BP 135/103
[2024-07-17 15:23] VITALS: BP 125/93
--- NOTE | 2024-07-17 17:21 | NUR ---
PT TRANSFERRED TO 358 PT ACCOMPANIED VIA WHEELCHAIR FOR TRANSPORT. NO ACUTE CHANGE FOR THE SHIFT, PT HAS BEEN INDEPENDENT IN THE ROOM, AMBIUALTING AROUND THE UNIT, VITALS HAS BEEN STABLE. RECHECKING KIDNEY FX IN AM AND POSSIBLE DISCHARGE, PT USES 1L OF O2 FOR SLEEP. NO OTHER ISSUES ENCOUNTERED FOR THE SHIFT, ALL BELONGINGS SENT WITH THE PT
--- NOTE | 2024-07-17 18:18 | NUR ---
SHIFT SUMMARY PT TRANSFERED FROM PCU 2 THIS SHIFT AND ARRIVED TO ROOM ON MEDICAL FLOOR AROUND 1400. PT NOTED TO BE A&O X4 AT THAT TIME THE DAY WENT ON PT NOTED TO HAVE SOME INTERMITTEN CONFUSION AND DELIRUM NOTED TO WHAT WAS GOING ON. PT IS SBA IN ROOM AND WEARS 1L/NC DURING THE DAY AND 2L/NC AT NIGHT PER NURSING REPORT.
[2024-07-17 19:39] VITALS: BP 132/98
[2024-07-17] MEDS ORDERED: Amiodarone HCl 200 MG Tab PO SCH (21:00)
[2024-07-18 02:46] VITALS: BP 123/95
--- NOTE | 2024-07-18 05:06 | NUR ---
SHIFT SUMMARY PT IS A&OX3. VSS ON RA.PER TELEMETRY PT IS SR IN THE 70'S. DENIES PAIN. PT IS ANXIOUS, AND WHEN THIS RN TOLD HIM HE COULDN'T GO OUTSIDE HE SNUCK DOWNSTAIRS TO THE VENDING MACHINES AND GOT A [employer] DOUBLE SHOT CAN OF COFFEE. WHEN THIS RN FOUND HIM IN THE SLAUGHTER AND INFORMED HIM THIS WAS NOT ALLOWED, HE BECAME IRRITABLE. HE WAS CAUGHT OUT WANDERING HALLS AGAIN TWICE. AGAIN DOWNSTAIRS TO THE VENDING MACHINES AND GOT ANOTHER [employer] COFFEE, SECURITY ESCORTED HIM BACK TO HIS ROOM. HE NOW HAS AN AVASURE CAMERA. TOLERATING A HEART HEALTHY DIET. PT IS UP AD SVETA INDEPENDENTLY. PT IS VOIDING IN THE TOILET, NO BM THIS SHIFT. BED IN LOWEST POSITION, CALL LIGHT WITHIN REACH.
[2024-07-18 07:30] LABS: BASOPHILS ABSOLUTE AUTO 0.05 K/mm3 (0.00-0.23); BASOPHILS PERCENT AUTO 0 % (0-2); EOSINOPHILS ABSOLUTE AUTO 0.04 K/mm3 (0.00-0.68); EOSINOPHILS PERCENT AUTO 0 % (0-6); Hematocrit 37.6 % (37.0-53.0); Hemoglobin 12.1 g/dL (13.5-17.5); IMMATURE GRAN ABSOLUTE AUTO 0.08 K/mm3 (0.00-0.10); IMMATURE GRAN PERCENT AUTO 1 % (0-1); LYMPHOCYTES PERCENT AUTO 16 % (21-46); MONOCYTES ABSOLUTE AUTO 1.22 K/mm3 (0.16-1.47); MONOCYTES PERCENT AUTO 10 % (4-13); Mean Corpuscular HGB 30.4 pg (26.0-34.0); Mean Corpuscular HGB Conc 32.2 g/dL (31.5-36.5); Mean Corpuscular Volume 95 fL (80-100); Mean Platelet Volume 10.2 fL (9.1-12.4); NEUTROPHILS ABSOLUTE AUTO 8.98 K/mm3 (1.96-9.15); NEUTROPHILS PERCENT AUTO 73 % (41-73); Platelet Count 333 K/mm3 (150-400); RDW Coefficient Variation 15.5 % (11.7-14.2); RDW Standard Deviation 53.1 fL (35.1-46.3); Red Blood Cell Count 3.98 M/mm3 (4.30-5.90); White Blood Cell Count 12.37 K/mm3 (4.00-11.30)
[2024-07-18 07:47] LABS: Bun/Creatinine Ratio 24.1 (12.0-20.0); Calcium, Blood 8.8 mg/dL (8.5-10.1); Creatinine, Blood 2.41 mg/dL (0.60-1.20); Potassium, Blood 5.1 mmol/L (3.5-5.5)
[2024-07-18 07:59] VITALS: BP 129/96
[2024-07-18] MEDS ORDERED: Torsemide 10 MG TAB PO SCH (09:00)
[2024-07-18] MEDS ORDERED: Spironolactone 12.5 MG TAB PO SCH (09:00)
[2024-07-18] MEDS ORDERED: Empagliflozin 10 MG TAB PO SCH (09:00)
[2024-07-18] MEDS ORDERED: Bumetanide 0.25 MG/ML 4ML ViaL IV SCH (15:00)
[2024-07-18 16:12] VITALS: BP 126/90
--- NOTE | 2024-07-18 18:42 | NUR ---
REPORT RECEIVED VERIFIED, PPT DOING WELL WANTING TO GO HOME BECAUSE ITS HIS BIRTHDAY BUT AGREED TO STAY KNOWING HIS KIDNEYS WERE HAVING ISSUES. ROOM CAMERA DCED BECAUSE PT INDEPENDANT IN ROOM AND SHOWS NO RISK OF FALLING. DR GOMEZ IN FOR CONSULTATIONS, NEW ORDERS WRITTEN AND IMPLEMENTED. PT ABLE TO MAKE NEEDS KNOWN
[2024-07-18 19:30] VITALS: BP 129/105
[2024-07-18] MEDS ORDERED: Famotidine 20 MG Tab PO SCH (21:00)
[2024-07-19 04:04] VITALS: BP 136/99
--- NOTE | 2024-07-19 04:49 | NUR ---
SHIFT SUMMARY PATIENT WAS AWAKE MOST OF THE NIGHT WALKING IN HALLWAY OFTEN, TAKING OFF TELE REPEATLY. DID NOT REQUIRE PAIN MED. TELE SR 68 BUT TELE CALLED HE HAD A 8 BEATS OF V TACH. 24 URINE COLLECTION IN PROGRESS
[2024-07-19 05:42] LABS: BASOPHILS ABSOLUTE AUTO 0.08 K/mm3 (0.00-0.23); BASOPHILS PERCENT AUTO 1 % (0-2); EOSINOPHILS ABSOLUTE AUTO 0.06 K/mm3 (0.00-0.68); EOSINOPHILS PERCENT AUTO 0 % (0-6); Hematocrit 35.2 % (37.0-53.0); Hemoglobin 11.4 g/dL (13.5-17.5); IMMATURE GRAN ABSOLUTE AUTO 0.13 K/mm3 (0.00-0.10); IMMATURE GRAN PERCENT AUTO 1 % (0-1); LYMPHOCYTES ABSOLUTE AUTO 1.84 K/mm3 (0.84-5.20); LYMPHOCYTES PERCENT AUTO 12 % (21-46); MONOCYTES ABSOLUTE AUTO 1.36 K/mm3 (0.16-1.47); MONOCYTES PERCENT AUTO 9 % (4-13); Mean Corpuscular HGB 30.2 pg (26.0-34.0); Mean Corpuscular HGB Conc 32.4 g/dL (31.5-36.5); Mean Corpuscular Volume 93 fL (80-100); Mean Platelet Volume 10.5 fL (9.1-12.4); NEUTROPHILS ABSOLUTE AUTO 11.37 K/mm3 (1.96-9.15); NEUTROPHILS PERCENT AUTO 77 % (41-73); NRBC ABSOLUTE 0.03 K/mm3 (0.00-0.02); NRBC Auto 0.2 /100 WBC (0.0-0.2); Platelet Count 292 K/mm3 (150-400); RDW Coefficient Variation 15.6 % (11.7-14.2); RDW Standard Deviation 53.2 fL (35.1-46.3); Red Blood Cell Count 3.77 M/mm3 (4.30-5.90); White Blood Cell Count 14.84 K/mm3 (4.00-11.30)
[2024-07-19 06:12] LABS: Albumin, Blood 2.8 g/dL (3.4-5.0); Anion Gap 14 mmol/L (3-11); Blood Urea Nitrogen 70 mg/dL (8-24); Bun/Creatinine Ratio 26.1 (12.0-20.0); CO2, Blood 22 mmol/L (21-32); Calcium, Blood 8.2 mg/dL (8.5-10.1); Chloride, Blood 103 mmol/L (98-108); Creatinine, Blood 2.68 mg/dL (0.60-1.20); Glomerular Filtration Rate 25 (60-); Glucose, Blood 123 mg/dL (70-99); Magnesium, Blood 2.4 mg/dL (1.6-2.4); Phosphorus, Blood 4.3 mg/dL (2.5-4.9); Potassium, Blood 4.8 mmol/L (3.5-5.5); Sodium, Blood 134 mmol/L (136-145)
[2024-07-19 07:18] VITALS: BP 120/91
[2024-07-19 14:56] VITALS: BP 149/95
[2024-07-19 17:55] LABS: Protein, Urine Quantitative 9.7 mg/dL (0.0-11.9)
[2024-07-19 19:58] VITALS: BP 127/82
[2024-07-20 03:09] VITALS: BP 98/57
[2024-07-20 05:05] LABS: Hemoglobin 11.1 g/dL (13.5-17.5)
[2024-07-20 05:31] LABS: Albumin, Blood 2.5 g/dL (3.4-5.0); Anion Gap 13 mmol/L (3-11); Blood Urea Nitrogen 71 mg/dL (8-24); Bun/Creatinine Ratio 27.1 (12.0-20.0); CO2, Blood 21 mmol/L (21-32); Calcium, Blood 7.8 mg/dL (8.5-10.1); Chloride, Blood 107 mmol/L (98-108); Creatinine, Blood 2.62 mg/dL (0.60-1.20); Glomerular Filtration Rate 25 (60-); Glucose, Blood 115 mg/dL (70-99); Magnesium, Blood 2.4 mg/dL (1.6-2.4); Phosphorus, Blood 3.3 mg/dL (2.5-4.9); Potassium, Blood 4.1 mmol/L (3.5-5.5); Sodium, Blood 137 mmol/L (136-145)
--- NOTE | 2024-07-20 06:45 | NUR ---
SHIFT SUMMARY NOC PT A/O X 4. PLEASANT AND COOPERATIVE WITH CARE. VSS. NO ACUTE CHANGES TO REPORT. PT IS ADHERING TO 1L FLUID RESTRICTION. GOOD URINE OUTPUT. ON TELE SINUS RHYTHM/BBB IN 60'S. PT STATES EAGERNESS TO GO HOME. POSSIBLE DISCHARGE TODAY PENDING IMPROVED RENAL FUNCTION. PT HAD 3 BEAT RUN OF SINUS MADISON @ 38 BPM AND CONVERTED TO AFIB IN 80'S THEN BACK TO SINUS RHYTHM IN 60'S. PT ASSESSED AND ASYMPTOMATIC. PT CURRENTLY RESTING WITH BED IN LOWEST POSITION, AND CALL LIGHT WITHIN REACH.
[2024-07-20 07:00] VITALS: BP 114/83
[2024-07-20] MEDS ORDERED: Bumetanide 1 MG Tab PO SCH (09:00)
[2024-07-20 11:55] LABS: BASOPHILS ABSOLUTE AUTO 0.04 K/mm3 (0.00-0.23); BASOPHILS PERCENT AUTO 0 % (0-2); EOSINOPHILS ABSOLUTE AUTO 0.16 K/mm3 (0.00-0.68); EOSINOPHILS PERCENT AUTO 1 % (0-6); Hematocrit 34.9 % (37.0-53.0); Hemoglobin 11.3 g/dL (13.5-17.5); IMMATURE GRAN ABSOLUTE AUTO 0.08 K/mm3 (0.00-0.10); IMMATURE GRAN PERCENT AUTO 1 % (0-1); LYMPHOCYTES ABSOLUTE AUTO 1.36 K/mm3 (0.84-5.20); LYMPHOCYTES PERCENT AUTO 12 % (21-46); MONOCYTES ABSOLUTE AUTO 0.91 K/mm3 (0.16-1.47); MONOCYTES PERCENT AUTO 8 % (4-13); Mean Corpuscular HGB 30.5 pg (26.0-34.0); Mean Corpuscular HGB Conc 32.4 g/dL (31.5-36.5); Mean Corpuscular Volume 94 fL (80-100); Mean Platelet Volume 11.2 fL (9.1-12.4); NEUTROPHILS ABSOLUTE AUTO 9.14 K/mm3 (1.96-9.15); NEUTROPHILS PERCENT AUTO 78 % (41-73); NRBC ABSOLUTE 0.07 K/mm3 (0.00-0.02); NRBC Auto 0.6 /100 WBC (0.0-0.2); Platelet Count 272 K/mm3 (150-400); RDW Coefficient Variation 15.6 % (11.7-14.2); RDW Standard Deviation 53.3 fL (35.1-46.3); White Blood Cell Count 11.69 K/mm3 (4.00-11.30)
[2024-07-20] MEDS ORDERED: Amiodarone HCl200 MG PO (14:05)
[2024-07-20] MEDS ORDERED: ELIQUIS5 M2 PO (14:05)
[2024-07-20] MEDS ORDERED: ATOR80 PO (14:05)
[2024-07-20] MEDS ORDERED: BUME2 PO (14:06)
[2024-07-20] MEDS ORDERED: CLOP75 PO (14:06)
[2024-07-20] MEDS ORDERED: SENN187 PO (14:07)
[2024-07-20] MEDS ORDERED: METO25ER PO (14:07)
--- NOTE | 2024-07-20 16:28 | NUR ---
VSS, A-Ox4, denies SOB, denies any pain, ambulates independently in room, on RA. Lung diminished with expitory wheeze, heart regular, NS on tele, bowel sounds normative. Pt D/C at 1500, D/C insturction given, safety ensured.
== END 2024-07-20 14:55 | disposition home or self-care (01) | DRG 321 ==
LOC: ER 10:48 → MEDS 12:11 → ICUE 12:11 → PCU 07-15 11:20 → MEDS 07-17 15:50
PROVIDERS: Emergency Medicine; Hospitalist; Internal Medicine; Internal Medicine Nephrology; Physician Assistant; Student in an Organized Health Care Education/Training Program; ADMIT Family Medicine
PROC: 027034Z Dilation of Coronary Artery, One Artery with Drug-eluting Intraluminal Device, Percutaneous Approach (ICD-10-PCS; principal; 2024-07-12)
PROC: 4A023N7 Measurement of Cardiac Sampling and Pressure, Left Heart, Percutaneous Approach (ICD-10-PCS; 2024-07-12)
PROC: B2111ZZ Fluoroscopy of Multiple Coronary Arteries using Low Osmolar Contrast (ICD-10-PCS; 2024-07-12)
PROC: B241ZZ3 Ultrasonography of Multiple Coronary Arteries, Intravascular (ICD-10-PCS; 2024-07-12)
DX: I21.09 ST elevation (STEMI) myocardial infarction involving other coronary artery of anterior wall (principal); I50.21 Acute systolic (congestive) heart failure; N17.0 Acute kidney failure with tubular necrosis; F05 Delirium due to known physiological condition; I13.0 Hypertensive heart and chronic kidney disease with heart failure and stage 1 through stage 4 chronic kidney disease, or unspecified chronic kidney disease; E87.1 Hypo-osmolality and hyponatremia; J84.9 Interstitial pulmonary disease, unspecified; E87.20 Acidosis, unspecified; I48.92 Unspecified atrial flutter; E87.5 Hyperkalemia; D63.1 Anemia in chronic kidney disease; I45.10 Unspecified right bundle-branch block; N18.31 Chronic kidney disease, stage 3a; I25.5 Ischemic cardiomyopathy; I48.91 Unspecified atrial fibrillation; F17.210 Nicotine dependence, cigarettes, uncomplicated; I25.10 Atherosclerotic heart disease of native coronary artery without angina pectoris; Z79.01 Long term (current) use of anticoagulants; Z79.899 Other long term (current) drug therapy; Z88.5 Allergy status to narcotic agent; Z79.51 Long term (current) use of inhaled steroids
CPT/HCPCS: 36415; 37252; 71045; 76770; 80047; 80048; 80053; 80069; 82803; 83690; 83735; 83880; 84156; 84484; 85014; 85018; 85025; 85347; 92920; 93005; 93010; 93454; 93458; 94640; 94664; 94760; 94762; 99152; 99153; 99285-25; A9270; C1725; C1753; C1769; C1874; C1887; C1894; C8929; C9600; C9606; G0103; J0282; J1160; J1644; J1940; J2060; J2250; J3010; J3246; J3480; J7030; J7050; J7060; Q9957; Q9967; U0002

== ENCOUNTER → 2024-07-29 | Outpatient (CLI) | payer OTHER ==
[~2024-07-29] MED LIST changes: +ATOR80 PO; +Amiodarone HCl200 MG PO; +BUME2 PO; +CLOP75 PO; +ELIQUIS5 M2 PO; +METO25ER PO; +SENN187 PO
[2024-07-29 14:28] LABS: Albumin, Blood 2.5 g/dL (3.4-5.0); Albumin/Globulin Ratio 0.5 (0.8-1.8); Bilirubin, Total 1.2 mg/dL (0.1-1.0); Bun/Creatinine Ratio 22.7 (12.0-20.0); Calcium, Blood 8.3 mg/dL (8.5-10.1); Creatinine, Blood 2.77 mg/dL (0.60-1.20); Potassium, Blood 3.5 mmol/L (3.5-5.5); Total Protein, Blood 7.5 g/dL (6.4-8.2)
[2024-07-29 14:40] LABS: BASOPHILS ABSOLUTE AUTO 0.06 K/mm3 (0.00-0.23); BASOPHILS PERCENT AUTO 1 % (0-2); EOSINOPHILS ABSOLUTE AUTO 0.13 K/mm3 (0.00-0.68); EOSINOPHILS PERCENT AUTO 1 % (0-6); Hematocrit 36.4 % (37.0-53.0); Hemoglobin 11.7 g/dL (13.5-17.5); IMMATURE GRAN ABSOLUTE AUTO 0.07 K/mm3 (0.00-0.10); IMMATURE GRAN PERCENT AUTO 1 % (0-1); LYMPHOCYTES ABSOLUTE AUTO 1.12 K/mm3 (0.84-5.20); LYMPHOCYTES PERCENT AUTO 10 % (21-46); MONOCYTES ABSOLUTE AUTO 0.73 K/mm3 (0.16-1.47); MONOCYTES PERCENT AUTO 7 % (4-13); Mean Corpuscular HGB 30.2 pg (26.0-34.0); Mean Corpuscular HGB Conc 32.1 g/dL (31.5-36.5); Mean Corpuscular Volume 94 fL (80-100); NEUTROPHILS ABSOLUTE AUTO 9.12 K/mm3 (1.96-9.15); NEUTROPHILS PERCENT AUTO 81 % (41-73); Platelet Count 312 K/mm3 (150-400); RDW Coefficient Variation 16.4 % (11.7-14.2); RDW Standard Deviation 56.5 fL (35.1-46.3); Red Blood Cell Count 3.87 M/mm3 (4.30-5.90); White Blood Cell Count 11.23 K/mm3 (4.00-11.30)
== END | disposition home or self-care (01) ==
LOC: LAB SHORT 14:13 → LAB 14:13
PROVIDERS: Physician Assistant Medical
DX: R53.1 Weakness (principal)
CPT/HCPCS: 80053; 85025; 85379

== ENCOUNTER 2024-08-04 12:25 | Inpatient (IN) | payer MEDICARE ==
[~2024-08-04] VITALS: Ht 188 cm; Wt 90.0 kg
[2024-08-04 13:24] LABS: BASOPHILS ABSOLUTE AUTO 0.08 K/mm3 (0.00-0.23); BASOPHILS PERCENT AUTO 1 % (0-2); EOSINOPHILS ABSOLUTE AUTO 0.08 K/mm3 (0.00-0.68); EOSINOPHILS PERCENT AUTO 1 % (0-6); Hemoglobin 11.1 g/dL (13.5-17.5); IMMATURE GRAN ABSOLUTE AUTO 0.04 K/mm3 (0.00-0.10); IMMATURE GRAN PERCENT AUTO 0 % (0-1); LYMPHOCYTES ABSOLUTE AUTO 0.92 K/mm3 (0.84-5.20); LYMPHOCYTES PERCENT AUTO 9 % (21-46); MONOCYTES ABSOLUTE AUTO 0.55 K/mm3 (0.16-1.47); MONOCYTES PERCENT AUTO 5 % (4-13); Mean Corpuscular HGB 30.2 pg (26.0-34.0); Mean Corpuscular HGB Conc 31.7 g/dL (31.5-36.5); Mean Corpuscular Volume 95 fL (80-100); Mean Platelet Volume 9.6 fL (9.1-12.4); NEUTROPHILS ABSOLUTE AUTO 8.82 K/mm3 (1.96-9.15); NEUTROPHILS PERCENT AUTO 84 % (41-73); Platelet Count 294 K/mm3 (150-400); RDW Coefficient Variation 16.6 % (11.7-14.2); RDW Standard Deviation 56.7 fL (35.1-46.3); Red Blood Cell Count 3.68 M/mm3 (4.30-5.90); White Blood Cell Count 10.49 K/mm3 (4.00-11.30)
[2024-08-04 13:39] LABS: Albumin, Blood 2.6 g/dL (3.4-5.0); Albumin/Globulin Ratio 0.6 (0.8-1.8); Bun/Creatinine Ratio 28.1 (12.0-20.0); Calcium, Blood 8.3 mg/dL (8.5-10.1); Creatinine, Blood 2.35 mg/dL (0.60-1.20); Globulin, Blood 4.6 g/dL (2.2-4.0); Potassium, Blood 3.5 mmol/L (3.5-5.5); Total Protein, Blood 7.2 g/dL (6.4-8.2)
[2024-08-04] MEDS ORDERED: Furosemide 10 MG/ML 10ML Vial IV ONE (14:40)
[2024-08-04] MEDS ORDERED: Temazepam 15 MG Cap PO PRN (17:05)
[2024-08-04] MEDS ORDERED: Acetaminophen 325 MG TABLET PO PRN (17:05)
[2024-08-04] MEDS ORDERED: Ondansetron HCl 2 MG / ML 2ML Vial IV PRN (17:05)
[2024-08-04] MEDS ORDERED: Ondansetron 4 MG TAB PO PRN (17:05)
[2024-08-04] MEDS ORDERED: FLU VACC TS2024-25(6MOS UP)/PF 45 MCG/0.5 ML SYRINGE IM ONE (17:10)
[2024-08-04] MEDS ORDERED: Ipratropium/Albuterol SulF 2.5-0.5MG/3 ML Amp INH SCH (17:10)
[2024-08-04] MEDS ORDERED: Albuterol 2.5 MG/3 ML VIAL INH PRN (17:10)
[2024-08-04] MEDS ORDERED: Sennosides 8.6 MG Tab PO PRN (17:15)
[2024-08-04 17:44] LABS: Influenza A, PCR NEGATIVE (NEGATIVE); Influenza B, PCR NEGATIVE (NEGATIVE); Resp Syncytial Virus, PCR NEGATIVE (NEGATIVE); SARS-Cov-2 (COVID-19) PCR, MMC NEGATIVE (NEGATIVE)
[2024-08-04 17:52] VITALS: BP 124/82
[2024-08-04] MEDS ORDERED: Bumetanide 0.25 MG/ML 4ML ViaL IV SCH (18:00)
--- NOTE | 2024-08-04 18:24 | NUR ---
SHIFT SUMMARY PT A&OX4, VSS, ON 2L O2 NC, TOLERATING PO, VOIDING, AND DENIED PAIN. BUMEX GIVEN PER ORDER. NO OTHER ACUTE CHANGES. CALL LIGHT WITHIN REACH AND PT ABLE TO MAKE NEEDS KNOWN.
[2024-08-04 19:25] VITALS: BP 110/84
[2024-08-04] MEDS ORDERED: Famotidine 20 MG Tab PO SCH (21:00)
[2024-08-04] MEDS ORDERED: Apixaban 5 MG Tab PO SCH (21:00)
[2024-08-05] VITALS (7 sets, daily range): BP systolic 113–148; BP diastolic 84–104
--- NOTE | 2024-08-05 04:46 | NUR ---
SHIFT SUMMARY PATIENT PLEASANT TO WORK WITH, HE DID HAVE EPISODE OF CONFUSION, REMOVING ALL HIS CLOTHES AND TELE WIRES. HAD SOME FRESH BLOOD SPOTS ON THE BED FROM OLD ARM SORE. CLEANED AND BANDAGE APPLIED. INCONT OF BM. TELE CALLED TO TELL ME HIS AF CONVERTED TO SR 80 AROUND 0400.
[2024-08-05 05:41] LABS: BASOPHILS ABSOLUTE AUTO 0.07 K/mm3 (0.00-0.23); BASOPHILS PERCENT AUTO 1 % (0-2); EOSINOPHILS ABSOLUTE AUTO 0.17 K/mm3 (0.00-0.68); EOSINOPHILS PERCENT AUTO 2 % (0-6); Hematocrit 33.6 % (37.0-53.0); Hemoglobin 10.8 g/dL (13.5-17.5); IMMATURE GRAN ABSOLUTE AUTO 0.04 K/mm3 (0.00-0.10); IMMATURE GRAN PERCENT AUTO 0 % (0-1); LYMPHOCYTES ABSOLUTE AUTO 1.02 K/mm3 (0.84-5.20); LYMPHOCYTES PERCENT AUTO 11 % (21-46); MONOCYTES PERCENT AUTO 5 % (4-13); Mean Corpuscular HGB 30.3 pg (26.0-34.0); Mean Corpuscular HGB Conc 32.1 g/dL (31.5-36.5); Mean Corpuscular Volume 94 fL (80-100); Mean Platelet Volume 9.4 fL (9.1-12.4); NEUTROPHILS PERCENT AUTO 81 % (41-73); Platelet Count 265 K/mm3 (150-400); RDW Coefficient Variation 16.6 % (11.7-14.2); RDW Standard Deviation 57.2 fL (35.1-46.3); Red Blood Cell Count 3.56 M/mm3 (4.30-5.90)
[2024-08-05 06:05] LABS: Magnesium, Blood 2.3 mg/dL (1.6-2.4)
[2024-08-05 06:19] LABS: Albumin, Blood 2.5 g/dL (3.4-5.0); Albumin/Globulin Ratio 0.6 (0.8-1.8); Bilirubin, Total 0.9 mg/dL (0.1-1.0); Bun/Creatinine Ratio 27.8 (12.0-20.0); Calcium, Blood 8.2 mg/dL (8.5-10.1); Creatinine, Blood 2.16 mg/dL (0.60-1.20); Globulin, Blood 4.3 g/dL (2.2-4.0); Phosphorus, Blood 3.8 mg/dL (2.5-4.9); Potassium, Blood 3.3 mmol/L (3.5-5.5); Total Protein, Blood 6.8 g/dL (6.4-8.2)
--- NOTE | 2024-08-05 06:28 | NUR ---
TELE CALLED AT APPROX, 0540 TO TELL ME PATIENT HERAT RHYTHM WAS SHOWING AN ST ELEVATION IN LEADS V AND MCL. WE WOKE PATIENT AND DID VITALS. JUST SLIGHTLY CHANGED. INFORMED CHARGE NURSE STEPHANIA ARMSTRONG
[2024-08-05] MEDS ORDERED: Potassium Chl 20MEQ/Water100ML 100 ML IV STA (08:09)
[2024-08-05] MEDS ORDERED: NS 250 ML IV PRN (08:35)
[2024-08-05] MEDS ORDERED: Amiodarone HCl 200 MG Tab PO SCH (09:00)
[2024-08-05] MEDS ORDERED: Atorvastatin 40 MG Tab PO SCH (09:00)
[2024-08-05] MEDS ORDERED: Potassium Chloride 10 Meq Tablet SA PO SCH ×2 (09:00)
[2024-08-05] MEDS ORDERED: Metoprolol Succinate 25 MG TABCR PO SCH (09:00)
[2024-08-05] MEDS ORDERED: Nicotine 14 MG PATCH TOP SCH (09:00)
[2024-08-05] MEDS ORDERED: Clopidogrel Bisulfate 75 MG Tab PO SCH (09:00)
[2024-08-05] MEDS ORDERED: Metolazone 2.5 MG Tab PO SCH (17:00)
--- NOTE | 2024-08-05 17:43 | NUR ---
SHIFT SUMMARY PT A&OX4, VSS, ON 4L O2 NC, AMB W/ ASSIST, TOLERATING PO, VOIDING, AND DENIED PAIN. PT WORKED W/ PHYSICAL THERAPY, SEE THERAPY NOTE. NO OTHER ACUTE CHANGES. CALL LIGHT WITHIN REACH AND PT ABLE TO MAKE NEEDS KNOWN.
[2024-08-06 04:12] VITALS: BP 133/100
--- NOTE | 2024-08-06 05:17 | NUR ---
SHIFT SUMMARY SLEPT IN LONG INTERVALS. MEDICATED WITH PRN RESTORIL & TYLENOL. BLE SEEM ALTTLE LESS EDEMATOUS. TELE SR 84.
[2024-08-06 06:35] LABS: Hematocrit 33.9 % (37.0-53.0); Hemoglobin 10.8 g/dL (13.5-17.5)
[2024-08-06 06:37] LABS: Albumin, Blood 2.6 g/dL (3.4-5.0); Anion Gap 8 mmol/L (3-11); Blood Urea Nitrogen 58 mg/dL (8-24); Bun/Creatinine Ratio 24.9 (12.0-20.0); CO2, Blood 27 mmol/L (21-32); Calcium, Blood 8.2 mg/dL (8.5-10.1); Chloride, Blood 106 mmol/L (98-108); Creatinine, Blood 2.33 mg/dL (0.60-1.20); Glomerular Filtration Rate 29 (60-); Glucose, Blood 144 mg/dL (70-99); Magnesium, Blood 2.3 mg/dL (1.6-2.4); Phosphorus, Blood 3.7 mg/dL (2.5-4.9); Potassium, Blood 3.2 mmol/L (3.5-5.5); Sodium, Blood 138 mmol/L (136-145)
[2024-08-06 07:24] VITALS: BP 131/99
[2024-08-06] MEDS ORDERED: Potassium Chloride 10 Meq Tablet SA PO ONE ×2 (08:05→08:20)
--- NOTE | 2024-08-06 08:06 | NUR ---
PER DR PATRICIA DWYER. CHANGE K+ FROM DAILY TO BID, ONE TIME DOSE ADDL 30 MEQ FOR TOTAL THIS AM OF 50 MEQ. DONE
--- NOTE | 2024-08-06 08:17 | NUR ---
ATTEMPTED TO MOVE PO K+ FROM DAILY TO BID. LOST AM DOSE. PHA STATES TO ADD NOW DOSE K+, DONE. PER PRIOR DR GOMEZ NOTE, PT TO RECEIVE 50 MEQ THIS AM.
[2024-08-06] MEDS ORDERED: Isosorbide Mononitrate 60 MG TABCR PO SCH (09:00)
[2024-08-06] MEDS ORDERED: Losartan Potassium 25 MG Tab PO SCH (09:00)
[2024-08-06] MEDS ORDERED: AmLODIPine Besylate 5 MG Tab PO SCH (09:00)
[2024-08-06 16:18] VITALS: BP 117/80
[2024-08-06] MEDS ORDERED: Potassium Chloride 10 Meq Tablet SA PO SCH (17:00)
--- NOTE | 2024-08-06 17:53 | NUR ---
O2 PULSE OX NOTIFIED LOW O2. MID LOW 70'S. TURNED O2 UP TO 5 L. RECOVERED. CALLED R/T TO REVIEW. OXYMASK PLACED WHEN NOT EATING. LOWERED TO 4L. READING 91%, EATING.
--- NOTE | 2024-08-06 18:42 | NUR ---
PT PLEASANT TODAY. DID HAVE DROP IN O2 THIS AFT. DR CALLED. PLACED ON OXIMASK IS MOUTH BREATHER. THIS HAS WORKED SO FAR. ON 3L O2 WITH MASK. DROPPED AGAIN DURING EATING. ON N/C AT 4-5 L TO KEEP UP TO 90%. HAD TO REMIND HIM TO SLOW DOWN EATING. HIS FINGERS DO NOT READ WELL. PLACED ON EAR FOR O2 READING. DID ORDER BREATHING TREATMENT WHEN DROPPED. LUNGS CRACKLES IN BASES ADN WHEEZY UPPER. DISCUSSED WITH NO NEW ORDERS. DID GIVE BUMEX ORDERED. NO OTHER CONCERNS NOTED. BED IN LOW POSITION, CALL LITE IN REACH, CALLS APPROP
[2024-08-06 21:38] VITALS: BP 141/99
[2024-08-07 03:51] VITALS: BP 121/99
--- NOTE | 2024-08-07 05:26 | NUR ---
SHIFT SUMMARY PATIENT SLEPT OFF AND ON. HAS BEEN COUGHING SOME ALSO, WHITISH SPUTUM. OXYMASK WORKING WELL TO KEEP PULSE SAT. UP WHILE HE IS SLEEPING. TELE SR @ 82 LOW GRADE TEMP RECORDED. BLE STILL 2 TO 3 + EDEMA.
[2024-08-07] MEDS ORDERED: Pantoprazole Sodium 20 MG Tab PO SCH (06:00)
[2024-08-07 06:40] LABS: Bun/Creatinine Ratio 24.8 (12.0-20.0); Calcium, Blood 8.3 mg/dL (8.5-10.1); Creatinine, Blood 2.38 mg/dL (0.60-1.20); Potassium, Blood 3.3 mmol/L (3.5-5.5)
[2024-08-07 07:23] VITALS: BP 124/88
[2024-08-07] MEDS ORDERED: Potassium Chloride 20 MEQ TabCR PO ONE (07:25)
[2024-08-07] MEDS ORDERED: Bumetanide 0.25 MG/ML 4ML ViaL IV SCH (09:00)
[2024-08-07] MEDS ORDERED: Isosorbide Mononitrate 60 MG TABCR PO SCH (09:00)
[2024-08-07 15:02] VITALS: BP 101/70
--- NOTE | 2024-08-07 15:07 | NUR ---
PT WAS TRANSFERRED TO ROOM 335 AT 1445 AND REPORT WAS GIVEN TO TK GIBSON. PT HAD ALL PERSONAL BELONGINGS MOVED TO ROOM AND WAS SETTLED IN. PT SITTING UP IN CHAIR WITH CALL LIGHT IN REACH. NO DISTRESS NOTED.
--- NOTE | 2024-08-07 15:10 | NUR ---
THIS GUNITE NOZZLE OPERATOR HAS REVIEWED AND AGREES WITH ALL NOTES AND ASSESSMENTS BY TK GODINEZ.
--- NOTE | 2024-08-07 18:35 | NUR ---
THIS RN ASSUMED CARE AT 1450. PATIENT ALERT AND ORIENTED X3. UP IN RECLINER THROUGHOUT MOST OF SHIFT. WEARING 4L OXY MASK/NASAL CANNULA. FLUID RESTICTION MAINTAINED. NO CHANGES TO TELE. GOOD APPEATITE. USING URINAL IND. DENIES ABDOMINAL PAIN/NAUSEA. FAMILY IN TO VISIT THIS AFTERNOON. IV SALINE LOCKED. VITAL SIGNS STABLE. CALL LIGHT IN REACH. DENIES NEEDS AT THIS TIME.
[2024-08-07 20:13] VITALS: BP 91/59
[2024-08-08 03:12] VITALS: BP 115/75
--- NOTE | 2024-08-08 04:17 | NUR ---
SHIFT SUMMARY PT STAYED UNDER MAXIMUM PO FLUID INTAKE. CURRENTLY ON 5L O2 VIA OXYGEN MASK. SATING IN HIGH 80'S-LOW 90'S. SLEPT PEACEFULLY FOR MOST OF SHIFT. WOKE TO ASK FOR SNACK. EATING CORN FLAKES AND WATCHING TV CURRENTLY. PT STATES HE HAS HAD NO PAIN THIS EVENING. WILL CONTINUE TO MONITOR.
[2024-08-08 05:51] LABS: Hematocrit 31.4 % (37.0-53.0); Hemoglobin 10.1 g/dL (13.5-17.5)
[2024-08-08 06:14] LABS: Albumin, Blood 2.1 g/dL (3.4-5.0); Anion Gap 10 mmol/L (3-11); Blood Urea Nitrogen 55 mg/dL (8-24); Bun/Creatinine Ratio 26.6 (12.0-20.0); CO2, Blood 31 mmol/L (21-32); Calcium, Blood 8.1 mg/dL (8.5-10.1); Chloride, Blood 100 mmol/L (98-108); Creatinine, Blood 2.07 mg/dL (0.60-1.20); Glomerular Filtration Rate 34 (60-); Glucose, Blood 129 mg/dL (70-99); Phosphorus, Blood 3.6 mg/dL (2.5-4.9); Potassium, Blood 3.1 mmol/L (3.5-5.5); Sodium, Blood 138 mmol/L (136-145)
[2024-08-08] MEDS ORDERED: Potassium Chloride 20 MEQ TabCR PO ONE (06:40)
[2024-08-08 07:16] VITALS: BP 104/72
[2024-08-08] MEDS ORDERED: Potassium Chloride 20 MEQ TabCR PO SCH (08:30)
[2024-08-08] MEDS ORDERED: Midodrine 5 MG Tab PO SCH (09:00)
[2024-08-08] MEDS ORDERED: Eplerenone 25 MG Tab PO SCH (09:00)
[2024-08-08] MEDS ORDERED: Metolazone 5 MG Tab PO SCH (09:00)
[2024-08-08] MEDS ORDERED: Bumetanide 0.25 MG/ML 4ML ViaL IV SCH (09:00)
[2024-08-08 13:05] VITALS: BP 97/73
[2024-08-08 14:50] VITALS: BP 106/74
--- NOTE | 2024-08-08 16:59 | NUR ---
MET WITH PATIENT TO DISCUSS CODE STATUS. HE RELAYED THAT HE HAD A CONVERSATION WITH THE PROVIDER ABOUT THIS AND HE HAS BEEN THINKING A LOT ABOUT IT. HE REPORTS WITH HIS DECREASED HEART FUNCTION THAT THE OUTCOME WOULD PROBABLY NOT BE GOOD IF HE WERE TO BE RESUSCITATED. HE OPTED TO CHANGE HIS CODE STATUS TO DNR. CALLED PROVIDER AND ORDERS WERE CHANGED
[2024-08-08 17:49] VITALS: BP 116/95
[2024-08-08] MEDS ORDERED: Metoprolol Succinate 25 MG TABCR PO ONE (18:10)
--- NOTE | 2024-08-08 18:38 | NUR ---
SUMMARY- PT A/O X3-4. CONSULT WITH DR GOMEZ WHO IS MANAGING MOST OF MEDS AND PT HAVING DIURESIS, AND KCL REPLACEMTENT. HELD BP MEDS THIS AM AFTER CALLING DR GOMEZ RELATED TO SBP 104. STARTED ON MIDIDRINE TID. THIS PM HR >130, CALLED DR HOUSE AND OBTAINED ORDER FOR MET SUC TO BE GIVEN NOW AND PRN METOPROLOL IV. PT UP IN CHAIR MOST OF THE SHIFT. TOLERATING FOOD AND FOLLOWING FLUID RESTRICTION. HAD US BLE TO R/O DVT. HAS CX IN BASES AND BLE EDEMA. WILL REPORT TO NOC RN
--- NOTE | 2024-08-08 18:56 | NUR ---
CALLED DR DE LA CRUZ 1800 TO NOTIFY HER OF HR 136 SUSTAINED FOR 45 MINUTES. MAY HAVE CONVERTED INTO A FLUTTER. NO ORDER FOR EKG. ORDER FOR METOPROLO SUC 25MP PO NOW AND REEVAL IN 30MIN. IF HR SUSTAINED OVER 120, GIVE METOPROLOL IV 5MG AND THEREAFTER [id number]
[2024-08-08 19:02] VITALS: BP 125/94
[2024-08-08] MEDS ORDERED: Metoprolol Tartrate 1 MG/ML 5 ML VIAL IV PRN (19:10)
--- NOTE | 2024-08-08 21:25 | NUR ---
PT IN AFLUTTER HR 138. DR DE LA CRUZ AWARE. DOSE IV LOPRESSOR 5 MG GIVEN. CHECKED 10 MINUTES LATER AND PT CONVERTED TO SINUS RHYTHM IN 70'S.
[2024-08-09] VITALS (10 sets, daily range): BP systolic 90–105; BP diastolic 57–75
[2024-08-09] MEDS ORDERED: Metoprolol Tartrate 1 MG/ML 5 ML VIAL IV PRN
[2024-08-09] MEDS ORDERED: Metoprolol Tartrate 1 MG/ML 5 ML VIAL IV SCH
--- NOTE | 2024-08-09 05:14 | NUR ---
SHIFT SUMMARY NOC PT A/O X 4. PLEASANT AND COOPERATIVE WITH CARE. DURING CHANGE OF SHIFT REPORT PT HR HAD BEEN SUSTAINING AFLUTTER IN 130'S FOR ALMOST AN HOUR, LOPRESSOR 5 MG IV GIVEN AND PT CONVERTED TO SINUS RHYTHM IN 70'S. PT TACH'S UP INTO 110'S-120'S WHEN USING URINAL. BP STABLE 125/94 AFTER STARTING MIDODRINE, AM BP SOFT. PT HAD 101.1F TEMP TYLENOL GIVEN. LLE RED AND WARM TO TOUCH, BUT VENOUS DUPLEX FOUND TO BE NEGATIVE FOR DVT. PT HAD INCONTINENT BM DURING SHIFT. STILL ON O2 5L VIA OXYMASK SPO2 >92% ON CONTINOUS BIOX. PT CURRENTLY RESTING WITH BED IN LOWEST POSITION, AND CALL LIGHT WITHIN REACH.
[2024-08-09 06:16] LABS: BASOPHILS ABSOLUTE AUTO 0.06 K/mm3 (0.00-0.23); BASOPHILS PERCENT AUTO 1 % (0-2); EOSINOPHILS ABSOLUTE AUTO 0.11 K/mm3 (0.00-0.68); EOSINOPHILS PERCENT AUTO 1 % (0-6); Hematocrit 31.5 % (37.0-53.0); IMMATURE GRAN ABSOLUTE AUTO 0.05 K/mm3 (0.00-0.10); IMMATURE GRAN PERCENT AUTO 1 % (0-1); LYMPHOCYTES ABSOLUTE AUTO 0.96 K/mm3 (0.84-5.20); LYMPHOCYTES PERCENT AUTO 9 % (21-46); MONOCYTES ABSOLUTE AUTO 0.67 K/mm3 (0.16-1.47); MONOCYTES PERCENT AUTO 6 % (4-13); Mean Corpuscular HGB 29.7 pg (26.0-34.0); Mean Corpuscular HGB Conc 31.7 g/dL (31.5-36.5); Mean Corpuscular Volume 94 fL (80-100); Mean Platelet Volume 9.6 fL (9.1-12.4); NEUTROPHILS ABSOLUTE AUTO 8.55 K/mm3 (1.96-9.15); NEUTROPHILS PERCENT AUTO 82 % (41-73); Platelet Count 205 K/mm3 (150-400); RDW Coefficient Variation 16.4 % (11.7-14.2); RDW Standard Deviation 55.7 fL (35.1-46.3); Red Blood Cell Count 3.37 M/mm3 (4.30-5.90)
[2024-08-09 06:41] LABS: Albumin, Blood 2.1 g/dL (3.4-5.0); Anion Gap 10 mmol/L (3-11); Blood Urea Nitrogen 53 mg/dL (8-24); CO2, Blood 33 mmol/L (21-32); Chloride, Blood 98 mmol/L (98-108); Creatinine, Blood 1.96 mg/dL (0.60-1.20); Glomerular Filtration Rate 36 (60-); Glucose, Blood 171 mg/dL (70-99); Phosphorus, Blood 2.5 mg/dL (2.5-4.9); Potassium, Blood 3.4 mmol/L (3.5-5.5); Sodium, Blood 138 mmol/L (136-145)
[2024-08-09] MEDS ORDERED: Potassium Chloride 20 MEQ TabCR PO ONE (07:15)
[2024-08-09] MEDS ORDERED: Midodrine 5 MG Tab PO SCH (09:00)
[2024-08-09] MEDS ORDERED: CeFAZolin Sodium 1,000 MG in NS 50 ML IV SCH (12:00)
--- NOTE | 2024-08-09 18:20 | NUR ---
Pt remains on 5 L oxymask with continuous pulse ox satting low 90s. Bumex held today d/t SBP continuously under 100. About 1600 heart rate increased to 130s, and A-flutter, 5 mg Lopressor IV given and rate slowly decreased and converted back to SR in 70s. +3 pitting edema BLE, worse on left leg. Continent of urine in urinal, no BM this shift. Pt compliant with 1200 ml fluid restrictions. Ancef started today. Family in room, call light in reach, pt able to make needs known.
[2024-08-09] MEDS ORDERED: Lactobacil 2-S.Thermo-Bifido 1 1 Cap PO SCH (21:00)
[2024-08-09] MEDS ORDERED: Benzonatate 100 MG Cap PO PRN (23:05)
[2024-08-10 03:55] VITALS: BP 106/75
[2024-08-10 06:41] LABS: BASOPHILS ABSOLUTE AUTO 0.09 K/mm3 (0.00-0.23); BASOPHILS PERCENT AUTO 1 % (0-2); EOSINOPHILS ABSOLUTE AUTO 0.12 K/mm3 (0.00-0.68); EOSINOPHILS PERCENT AUTO 1 % (0-6); Hematocrit 32.1 % (37.0-53.0); Hemoglobin 9.9 g/dL (13.5-17.5); IMMATURE GRAN ABSOLUTE AUTO 0.04 K/mm3 (0.00-0.10); IMMATURE GRAN PERCENT AUTO 0 % (0-1); LYMPHOCYTES PERCENT AUTO 13 % (21-46); MONOCYTES ABSOLUTE AUTO 0.59 K/mm3 (0.16-1.47); MONOCYTES PERCENT AUTO 6 % (4-13); Mean Corpuscular HGB 29.1 pg (26.0-34.0); Mean Corpuscular HGB Conc 30.8 g/dL (31.5-36.5); Mean Corpuscular Volume 94 fL (80-100); Mean Platelet Volume 9.6 fL (9.1-12.4); NEUTROPHILS ABSOLUTE AUTO 7.53 K/mm3 (1.96-9.15); NEUTROPHILS PERCENT AUTO 79 % (41-73); Platelet Count 195 K/mm3 (150-400); RDW Coefficient Variation 16.2 % (11.7-14.2); RDW Standard Deviation 56.4 fL (35.1-46.3); White Blood Cell Count 9.57 K/mm3 (4.00-11.30)
[2024-08-10 07:04] LABS: Albumin, Blood 2.2 g/dL (3.4-5.0); Anion Gap 8 mmol/L (3-11); Blood Urea Nitrogen 55 mg/dL (8-24); Bun/Creatinine Ratio 27.4 (12.0-20.0); CO2, Blood 32 mmol/L (21-32); Calcium, Blood 8.2 mg/dL (8.5-10.1); Chloride, Blood 101 mmol/L (98-108); Creatinine, Blood 2.01 mg/dL (0.60-1.20); Glomerular Filtration Rate 35 (60-); Glucose, Blood 165 mg/dL (70-99); Magnesium, Blood 2.2 mg/dL (1.6-2.4); Sodium, Blood 137 mmol/L (136-145)
--- NOTE | 2024-08-10 07:34 | NUR ---
SHIFT SUMMARY NOC PT A/O 3-4. FORGETFUL AND CONFUSED AT TIMES. BP SOFT BUT IMPROVED. PT O2 DEMANDS HAVE INCREASED DUE TO CONGESTION AND HACKING COUGH. PT NOW ON 9-11L/OXYMASK TO MAINTAIN SPO2 >90%, PT ALSO KEEPS REMOVING O2 FREQUENTLY AND DESATS INTO MID 70'S QUICKLY AND TAKES A COUPLE MINUTES TO RECOVER. PT GIVEN BREATHING TX AND TESSALON PERRLS FOR HACKING COUGH, WHICH SEEMS TO HAVE STABILIZED SPO2. ON TELE SINUS RHYTHM IN 70'S, BUT QUICKLY CONVERTED TO AFIB FOR A FEW MINUTES IN 40'S, THEN BACK INTO SINUS 70'S. PT REMAINS INCONTINENT OF BM. PT CURRENTLY RESTING WITH BED IN LOWEST POSITION, AND CALL LIGHT WITHIN REACH.
[2024-08-10 07:48] VITALS: BP 128/97
[2024-08-10] MEDS ORDERED: Potassium Chloride 20 MEQ TabCR PO SCH (08:00)
[2024-08-10] MEDS ORDERED: Albumin Human 50 ML IV SCH (09:00)
[2024-08-10 09:43] VITALS: BP 114/92
--- NOTE | 2024-08-10 13:11 | NUR ---
DISCUSSED CASE WITH MULTIDICIPLINARY TEAM. MET WITH PATIENT TO ASSESS SYMPTOMS. HE REPORTED THAT HE WAS COMFORTABLE AT THIS TIME. HE HAD FAMILY AT THE BEDSIDE AT THIS TIME. WILL CONTINUE TO FOLLOW
[2024-08-10 14:27] VITALS: BP 111/79
--- NOTE | 2024-08-10 15:36 | NUR ---
ASSESSED PATIENTS COMFORT THIS SHIFT. HIS SON ZEINAB WAS AT BEDSIDE, HE EXPRESSED THAT IT IS DIFFICULT FOR HIM TO BE AT THIS HOSPITAL BECAUSE HIS HERE. I EXPLAINED TO HIM KRYSTAL MEDICAL STATUS. WE DISCUSSED HIS HEART FUNCTION AND HIS BREATHING. I EXPLAINED THE MEDICATIONS AND THE FINE BALANCE OF DOSING MEDICATIONS. WE DISCUSSED THAT OUR HOPE IS IMPROVMENT BUT THAT IF HIS BODY DOES NOT RESPOND TO THE TREATMENT WE MAY HAVE TO SHIFT OUR FOCUS. HE EXPRESSED UNDERSTANDING.
--- NOTE | 2024-08-10 18:25 | NUR ---
SHIFT SUMMARY: PT A/O X4. PLEASANT AND COOPERATIVE. IV BUMEX PROVIDED TWICE THIS SHIFT. EARLY CALL FROM TELE STATING PT APPEARED TO BE IN ATRIAL FLUTTER WITH HR IN 120'S-130'S. IV LOPRESSOR GIVEN AT THAT TIME. PT CONVERTED TO SINUS RHYHTM FOR A SHORT AMOUNT OF TIME THEN RETURNED TO ATRIAL FLUTTER. IV LOPRESSOR GIVEN AGAIN AROUND 1300. PT CONVERTED QUICKLY TO SINUS RHYHTM IN THE 70'S AND REMAINS NSR. IV ALBUMIN ADDED TID PER DR. GOMEZ. BLOOD PRESSURE STABLE THIS SHIFT AND PT ABLE TO RECEIVE IV DIURETICS PER EMAR PRODUCING ADEQUATE OUTPUT. PT CURRENTLY ON 10L VIA OXY MASK. PT QUICKYL DESATS WITH REMOVAL OF MASK. CONT BIOX IN PLACE. CALL LIGHT IN REACH. BED IN LOWEST POSITION.
[2024-08-10 19:41] VITALS: BP 110/78
[2024-08-11 03:33] VITALS: BP 119/84
[2024-08-11 05:59] LABS: Hemoglobin 9.9 g/dL (13.5-17.5)
[2024-08-11 06:33] LABS: Albumin, Blood 2.6 g/dL (3.4-5.0); Anion Gap 9 mmol/L (3-11); Blood Urea Nitrogen 59 mg/dL (8-24); Bun/Creatinine Ratio 28.2 (12.0-20.0); CO2, Blood 35 mmol/L (21-32); Calcium, Blood 8.2 mg/dL (8.5-10.1); Chloride, Blood 97 mmol/L (98-108); Creatinine, Blood 2.09 mg/dL (0.60-1.20); Glomerular Filtration Rate 33 (60-); Glucose, Blood 121 mg/dL (70-99); Magnesium, Blood 2.1 mg/dL (1.6-2.4); Phosphorus, Blood 3.9 mg/dL (2.5-4.9); Potassium, Blood 3.8 mmol/L (3.5-5.5); Sodium, Blood 137 mmol/L (136-145)
[2024-08-11 07:39] VITALS: BP 125/89
--- NOTE | 2024-08-11 07:44 | NUR ---
SHIFT SUMMARY PT A&Ox4 AND PLEASANT. NO C/O PAIN. CONTINUING TO DIURES. BLE WITH EDEMA BUT LLE MORE SWOLLEN AND RED THAN RIGHT. PT ON 11L OF O2 VIA OXI MASK AT START OF SHIFT HOWEVER, WHILE SLEEPING, PT WOULD DESAT DOWN TO THE LOW 80's. RT CALLED AND O2 WAS INCREASED TO 15L. NO EVENTS ON TELE. PT USED URINAL IND AT BEDSIDE BUT HAD TWO EPISODES OF INCONTINENT STOOL. IV ABX GIVEN PER EMAR. BED IN LOWEST POSITION AND CALL LIGHT IN REACH.
[2024-08-11 16:54] VITALS: BP 118/81
--- NOTE | 2024-08-11 17:52 | NUR ---
SHIFT SUMMARY PT RESTING QUIETLY WITH O2 MASK ON DURING SHIFT REPORT. PT ON 11L O2 AT START OF SHIFT. O2 DECREASED TO 9L, WITH BIOX AT 98%. DR ZUNIGA IN TO SEE PT AND DISCUSS PLAN OF CARE. PALLIATIVE CARE NOTIFIED FOR ASSISTANCE WITH FORMS FOR PT TO FILL OUT TO ASSIGN POA FOR HEALTH CARE. PT WORKING ON THEM THIS AFTERNOON. LUNGS T/O WITH COARSE CRACKLES THRU OUT. PT CURRENTLY ON FLUID RESTRICTION 1.2L. PT ABLE TO USE URINAL AT BS, INDEPENDENTLY. INCONTINENT OF BOWELS FOR BM TODAY. BED BATH AND LINEN CHANGE DONE. FAMILY IN TO VISIT OFF AND ON ALL DAY. PT'S SON REMAINS AT BS STILL AT THIS TIME. NO C/O. PLEASANT AND CO-OP WITH CARE. CALL LT IN REACH.
[2024-08-11 19:03] VITALS: BP 108/79
[2024-08-12 04:30] VITALS: BP 120/92
--- NOTE | 2024-08-12 05:01 | NUR ---
SHIFT SUMMARY PATIENT SLEPT IN LONG INTERVALS. O2 SATURATION MAINTAINED ON 9L/OPEN FACE MASK. BLE REMAIN 2+ EDEMA. TELE FLIPPED FROM A FIB @ 95 TO SR AROUND 0100. GIVEN PRN TYLENOL COUGH PEARLS AND RESTORIL.LOW GRADE TEMP OF 100.3
[2024-08-12 06:58] LABS: Hematocrit 32.5 % (37.0-53.0); Hemoglobin 10.2 g/dL (13.5-17.5)
[2024-08-12 07:19] VITALS: BP 111/78
[2024-08-12 07:24] LABS: Anion Gap 8 mmol/L (3-11); Blood Urea Nitrogen 64 mg/dL (8-24); Bun/Creatinine Ratio 30.2 (12.0-20.0); CO2, Blood 38 mmol/L (21-32); Calcium, Blood 8.6 mg/dL (8.5-10.1); Chloride, Blood 94 mmol/L (98-108); Creatinine, Blood 2.12 mg/dL (0.60-1.20); Glomerular Filtration Rate 33 (60-); Glucose, Blood 114 mg/dL (70-99); Magnesium, Blood 2.2 mg/dL (1.6-2.4); Potassium, Blood 3.4 mmol/L (3.5-5.5); Sodium, Blood 137 mmol/L (136-145)
[2024-08-12] MEDS ORDERED: Potassium Chloride 10 Meq Tablet SA PO ONE (08:35)
[2024-08-12 16:13] VITALS: BP 105/75
[2024-08-12 19:40] VITALS: BP 114/80
--- NOTE | 2024-08-12 20:01 | NUR ---
SHIFT SUMMARY PT RESTING QUIETLY AT START OF SHIFT WITH O2 MASK AT 7L. NO ACUTE CHANGES THRU OUT THE DAY. PT UP TO EOB FREQUENTLY TO VOID D/T DIURETICS. INCONTINENT OF BOWELS; HAVING EX LRG BM TODAY. EATING AND DRINKING WELL; MAINTAINING 1.2L FR WITH SUPERVISION. NO VISITORS TODAY. MULTIPLE IV MEDS GIVEN PER EMAR. PT MOSTLY SLEPT, BUT DID WATCH TV AT TIMES. PLEASANT AND CO-OP WITH CARE. CALL LT IN REACH. REPORT GIVEN TO ONCOMING RN.
[2024-08-13 03:37] VITALS: BP 103/75
--- NOTE | 2024-08-13 05:34 | NUR ---
Patient alert and oriented x3, VSS, resting comfortably in bed, frequently requesting snacks and liquid oral intake, education and reminders given. Patient voiding in urinal at side of bed overnight. Oxygen titrated down to 6L via oxymask, tolerating well, but patient continues to desaturate quickly with any oral intake, as low as 70's, taking several minutes to recover.
[2024-08-13 07:23] VITALS: BP 116/85
[2024-08-13 07:34] LABS: Bun/Creatinine Ratio 32.3 (12.0-20.0); Calcium, Blood 8.8 mg/dL (8.5-10.1); Creatinine, Blood 2.29 mg/dL (0.60-1.20); Potassium, Blood 3.6 mmol/L (3.5-5.5)
[2024-08-13] MEDS ORDERED: Potassium Chloride 10 Meq Tablet SA PO SCH (17:00)
[2024-08-13] MEDS ORDERED: Bumetanide 1 MG Tab PO SCH (18:00)
[2024-08-13 19:19] VITALS: BP 108/74
--- NOTE | 2024-08-13 19:30 | NUR ---
END OF SHIFT SUMMARY: A&Ox4. PLEASANT AND COOPERATIVE WITH CARE. CALLS APPROPRIATELY AND IS ABLE TO ADVOCATE NEEDS EFFECTIVELY. UNABLE TO AMBULATE DUE TO OXYGEN DEMANDS. UP TO SIDE-OF-BED FOR URINAL USE. INCONTINENT OF BOWELS. MEDS WHOLE WITH FLUIDS. TELE AFIB AND NSR. NO C/O PAIN OR DISCOMFORT. OXYGEN DEMANDS UP TO 8LPM TODAY. SON IN AND WANTS TO DISCUSS PLAN MOVING FORWARD; WILL HAVE SHAD IN PALLIATIVE CARE REACH OUT TO HIM THEY HAVE ALREADY DISCUSSED PATIENT'S CASE. BED IN LOWEST POSITION. CALL LIGHT WITHIN REACH. ALL NEEDS MET. REPORT TO ONCOMING NURSE.
[2024-08-14 03:32] VITALS: BP 120/83
--- NOTE | 2024-08-14 04:51 | NUR ---
SHIFT SUMMARY 69 YR M ADMITTED ON 08/04/25. DNR. NO ACUTE CHANGES THIS SHIFT. PT WAS PUT ON A NON REBREATHER MASK AT APPROX 0400 HE WAS DESATTING TO MID 80'S. SATS ARE NOW WNL. NO C/O PAIN OR DISCOMFORT THIS SHIFT. NO ADVERSE EVENTS REPORTED FROM [employer]. PT IS PLEASANT AND COOPERATIVE WITH CARE. BED IN LOW POSITION AND CALL LIGHT IN REACH.
[2024-08-14 07:05] LABS: Hemoglobin 10.2 g/dL (13.5-17.5)
[2024-08-14 07:22] LABS: Albumin, Blood 3.1 g/dL (3.4-5.0); Anion Gap 9 mmol/L (3-11); Blood Urea Nitrogen 76 mg/dL (8-24); Bun/Creatinine Ratio 32.1 (12.0-20.0); CO2, Blood 40 mmol/L (21-32); Chloride, Blood 91 mmol/L (98-108); Creatinine, Blood 2.37 mg/dL (0.60-1.20); Glomerular Filtration Rate 29 (60-); Glucose, Blood 157 mg/dL (70-99); Magnesium, Blood 2.1 mg/dL (1.6-2.4); Phosphorus, Blood 3.4 mg/dL (2.5-4.9); Potassium, Blood 3.7 mmol/L (3.5-5.5); Sodium, Blood 136 mmol/L (136-145)
[2024-08-14 07:34] VITALS: BP 108/76
[2024-08-14] MEDS ORDERED: Metolazone 5 MG Tab PO SCH (09:00)
[2024-08-14 11:26] LABS: Base Excess Venous 18.2 mmol/L; Bicarbonate Venous 39.3 mmol/L (24.0-30.0); PCO2 Venous 70.9 mmHg (38-42); pH Blood Venous 7.39 (7.34-7.37)
[2024-08-14 14:55] VITALS: BP 99/64
--- NOTE | 2024-08-14 18:04 | NUR ---
END OF SHIFT SUMMARY: A&Ox4. PLEASANT AND COOPERATIVE WITH CARE. CALLS APPROPRIATELY AND IS ABLE TO ADVOCATE NEEDS EFFECTIVELY. TWO-PERSON MAX-ASSIST TO RECLINER. VOIDS USING URINAL. INCONTINENT OF BOWEL. BED BATH RECEIVED TODAY AND UP TO RECLINER. TELE READING IN BETWEEN SINUS AND AFIB. VBGs AND CXR COMPLETED. RECEIVING ANCEF BID. NO C/O PAIN OR DISCOMFORT. NIKKO, PALLIATIVE CARE RN REACHING OUT TO SON TO DISCUSS PLACEMENT TO SNF VS HOME WITH HOSPICE. BED IN LOWEST POSITION. CALL LIGHT WITHIN REACH. ALL NEEDS MET. REPORT TO ONCOMING NURSE.
[2024-08-14 19:57] VITALS: BP 108/83
--- NOTE | 2024-08-15 03:42 | NUR ---
DIRECTOR GLOBAL MARKET RESEARCH SUMMARY VSS. ALERT AND ORIENTED. COOPERATIVE WITH CARE. ON O2 AT 10 L/MIN PER NC. LUNG SOUNDS DIMINISHED AND PT HAVING OCCASIONAL CONGESTED COUGH. ON FLUID RESTRICTION OF 1200 ML/DAY. INCONT OF URINE AND FECES X 1 OF THIS WRITING, CLEANED AND LINEN CHANGED. ABLE TO REPOSITION SELF IN BED. MED TELE SR AT 99 - HX CHF. HAS BEEN RESTING QUIETLY AT INTERVALS OTHERWISE. CALL LIGHT IN REACH, RAILS UP X 2 AND BED IN LOW POSITION FOR SAFETY. WILL CONTINUE TO MONITOR.
[2024-08-15 03:54] VITALS: BP 90/62
[2024-08-15 05:32] LABS: Hematocrit 31.4 % (37.0-53.0); Hemoglobin 10.2 g/dL (13.5-17.5)
[2024-08-15 05:56] LABS: Albumin, Blood 2.9 g/dL (3.4-5.0); Anion Gap 8 mmol/L (3-11); Blood Urea Nitrogen 75 mg/dL (8-24); Bun/Creatinine Ratio 36.4 (12.0-20.0); CO2, Blood 39 mmol/L (21-32); Calcium, Blood 9.1 mg/dL (8.5-10.1); Chloride, Blood 92 mmol/L (98-108); Creatinine, Blood 2.06 mg/dL (0.60-1.20); Glomerular Filtration Rate 34 (60-); Glucose, Blood 175 mg/dL (70-99); Magnesium, Blood 1.9 mg/dL (1.6-2.4); Potassium, Blood 3.7 mmol/L (3.5-5.5); Sodium, Blood 135 mmol/L (136-145)
[2024-08-15 07:32] VITALS: BP 93/71
[2024-08-15] MEDS ORDERED: Bumetanide 1 MG Tab PO SCH (09:00)
[2024-08-15] MEDS ORDERED: Potassium Chloride 10 Meq Tablet SA PO SCH (09:00)
[2024-08-15 14:15] VITALS: BP 97/73
--- NOTE | 2024-08-15 15:15 | NUR ---
Case Conference: Spoke to Luann, pt's son Candelario's significant other. She returned my call to Candelario yesterday, stating he works very long hours, and she is able to relay information to me for Candelario. She reports the patient only recently came to live on Candelario's property, as the patient had been unhoused and using illegal drugs for many years. According to Luann, the patient agreed to "get sober" in order to move onto the property, which is where he's been for the past year, until his health began to "fall apart." She states the patient has 3 children total, but one is also homeless and the other isn't local. Luann also reports she and Candelario both work very long hours and sometimes up to 7 days a week to afford the property they're living on. She states concern that pt's health has diminished to the point that he will be unable to care for himself. She describes she and Candelario's home as a small 1 bedroom house, and states between the house size and their full-time jobs, they feel unable to care for him if he requires it. Luann states she is willing to assist with calling and setting up medicaid financial interview for him. Explained this to CM, who request I give her the application information, which I did. uLann states she will call today. The plan at this point according to the patient is for him to go to SNF for strengthening then return home. However, pt's son Candelario and s/o Luann are anticipating continued health decline by patient. Agree it's better to have their bases covered.
[2024-08-15 19:24] VITALS: BP 103/71
--- NOTE | 2024-08-15 19:26 | NUR ---
DAY SHIFT SUMMARY: A&Ox4. PLEASANT AND COOPERATIVE WITH CARE. CALLS APPROPRIATELY AND IS ABLE TO ADVOCATE EFFECTIVELY. 650mL FLUID INTAKE TODAY. NO CHANGES. WORKED WITH OT TO SHOWER. 10-12LPM/MASK. MOVED ROOMS A LITTLE DOWN THE HALLWAY WITHOUT ISSUE. UP IN RECLINER AND BACK TO BED FOR MUCH OF DAY. SON AT BEDSIDE TO VISIT FOR A BIT. 100% ALL MEALS. BED IN LOWEST POSITION. CALL LIGHT WITHIN REACH. REPORT TO ONCOMING RN.
[2024-08-16 03:33] VITALS: BP 99/75
--- NOTE | 2024-08-16 04:33 | NUR ---
SHIFT SUMMARY ADMITTED FOR CHF EXACERBATION. DNR CODE. IV ANTIB RX ARE SCHEDULED. WE ARE TRYING TO TITRATE DOWN HIS O2 USAGE. HE IS ON 12 LPM O2 VIA OXYMIZER. WE ARE DIURESING HIM. HE WILL DC TO SNF WHEN HE IS MORE STABLE WITH HIS O2. HE IS ON STRICT I&O'S, DAILY WEIGHT'S. RENAL CONSULT IS DR. GOMEZ. CARDIOLOGY CONSULT IS DR. RILEY. 1 ASSIST W/FWW. 1200 ML FLUID RESTRICTION. PALLIATIVE CARE IS CONSULTED. TELEMETRY: TACHY @ 109 BPM, W/RIGHT BBB. HE IS ON ELIQUIS. HX: OF CHF - EF 25%, AFIB, RECENT STEMI 07/12/2024 - STENT PLACEMENT.
[2024-08-16 05:41] LABS: Hematocrit 31.8 % (37.0-53.0); Hemoglobin 10.3 g/dL (13.5-17.5)
[2024-08-16 06:12] LABS: Albumin, Blood 2.8 g/dL (3.4-5.0); Anion Gap 7 mmol/L (3-11); Blood Urea Nitrogen 71 mg/dL (8-24); Bun/Creatinine Ratio 34.6 (12.0-20.0); CO2, Blood 39 mmol/L (21-32); Calcium, Blood 8.8 mg/dL (8.5-10.1); Chloride, Blood 93 mmol/L (98-108); Creatinine, Blood 2.05 mg/dL (0.60-1.20); Glomerular Filtration Rate 34 (60-); Glucose, Blood 151 mg/dL (70-99); Magnesium, Blood 1.9 mg/dL (1.6-2.4); Potassium, Blood 3.6 mmol/L (3.5-5.5); Sodium, Blood 135 mmol/L (136-145)
[2024-08-16 07:22] VITALS: BP 120/90
[2024-08-16 14:53] VITALS: BP 100/71
--- NOTE | 2024-08-16 18:35 | NUR ---
SHIFT SUMMARY PT AOX4 AND COOPERATIVE OF CARE. PT ABLE TO EXPRESS NEEDS AND CALLS APPROPIATE. PT DID NOT RPEORT CHEST PAIN/PRESSURE THROGUHOUT SHIFT. PT SATS DOWN TO TO THE 70-80'S AT TIMES DURING SHIFT PT WAS SLEEPING, NOT GOOD PLETH THOUGH. SATS 88-94 ON 7L OXYMASK WHEN AWAKE. SATS DIP TO 80'S WHEN EATING. PT INDEPENDTLY USED URINAL IN BED. FLUID RESTRICTION IN PLACE. PT SON AT BEDSIDE FOR COUPLE OF HOURS AND UPDATED ON PT. NO ACUTE EVENTS DURING SHIFT.
[2024-08-16 19:58] VITALS: BP 99/71
--- NOTE | 2024-08-17 04:06 | NUR ---
SHIFT SUMMARY ADMITTED FOR CHF EXACERBATION. DNR CODE. WE ARE DIURESING HIM. 7 LPM O2 VIA OXIMIZER, GOAL TO DECREASE O2 NEED. ANTIB RX SCHEDULED FOR LLE CELLULITIS. DR. GOMEZ IS RENAL CONSULT. DR. RILEY IS CARDIOLOGY CONSULT. PLAN IS FOR DC TO SNF WHEN O2 NEED IS TITRATED DOWN. 1 ASSIST W/FWW. STRICT I&O'S, DAILY WT'S. TELEMETRY: CONVERTED TO NSR @ 2204 HOURS (WAS AFLUTTER). CARDIAC DIET. HX: COPD, CHF - EF 25%, AFIB. ON ELIQUIS. 1200 ML FLUID RESTRICTION. IMPULSIVELY GOT INTO THE CHAIR NEXT TO BED, REMOVED TELEMETRY CORDS AND GOWN THIS SHIFT. WE DID REDIRECT HIM EASILY THOUGH.
[2024-08-17 05:20] VITALS: BP 109/81
[2024-08-17 05:55] LABS: Hematocrit 31.5 % (37.0-53.0)
[2024-08-17 06:18] LABS: Albumin, Blood 2.9 g/dL (3.4-5.0); Anion Gap 6 mmol/L (3-11); Blood Urea Nitrogen 71 mg/dL (8-24); Bun/Creatinine Ratio 35.1 (12.0-20.0); CO2, Blood 40 mmol/L (21-32); Calcium, Blood 8.8 mg/dL (8.5-10.1); Chloride, Blood 94 mmol/L (98-108); Creatinine, Blood 2.02 mg/dL (0.60-1.20); Glomerular Filtration Rate 35 (60-); Glucose, Blood 121 mg/dL (70-99); Magnesium, Blood 1.9 mg/dL (1.6-2.4); Phosphorus, Blood 3.8 mg/dL (2.5-4.9); Potassium, Blood 3.6 mmol/L (3.5-5.5); Sodium, Blood 136 mmol/L (136-145)
[2024-08-17 07:54] VITALS: BP 84/63
[2024-08-17 08:16] VITALS: BP 92/64
[2024-08-17] MEDS ORDERED: Melatonin 5 MG Tablet PO PRN (09:05)
--- NOTE | 2024-08-17 11:35 | NUR ---
0800 TELE QALLED, FLIPPED FROM AFIB/FLUTTER TO NSR LST SHIFT. NOED PROLONGATED QTC. MIDNITE 0.48 8AM NOW 0.55. NSR 79, CALLED DR DE LA CRUZ RE CHANGE AND IF GIVE MEDS. REQUEST HOLD MEDS FOR NOW. RUN EKG TO VERIFY AND CALL BACK. DONE. CHANGES IN MEDS TO FOLLOW.
[2024-08-17 12:08] VITALS: BP 107/78
--- NOTE | 2024-08-17 16:04 | NUR ---
TELE AND IV PULLED BY JEMAL . CALLED REPORT TO ANTHONY RALPH. PT READY FOR TRANSPORT.
[2024-08-17] MEDS ORDERED: Acetaminophen650 M1 PO (16:45)
[2024-08-17] MEDS ORDERED: Ventolin5 MG/1 ML INH (16:46)
[2024-08-17] MEDS ORDERED: EPLE25 PO (16:46)
[2024-08-17] MEDS ORDERED: MELATONIN5 M1 PO (16:47)
[2024-08-17] MEDS ORDERED: Isosorbide Mono60 MG PO (16:47)
[2024-08-17] MEDS ORDERED: MIDODRINE HCL10 M1 PO (16:49)
[2024-08-17] MEDS ORDERED: Nicoderm Cq1 EAC1 TOP (16:49)
[2024-08-17] MEDS ORDERED: PANT20 PO (16:50)
[2024-08-17] MEDS ORDERED: POTA10T PO (16:50)
--- NOTE | 2024-08-17 17:03 | NUR ---
PT WHEELED TO DOOR AT 1705 BY TRANSPORT
[2024-08-18] MEDS ORDERED: Isosorbide Mononitrate 60 MG TABCR PO SCH (09:00)
[2024-08-18] MEDS ORDERED: Bumetanide 1 MG Tab PO SCH (09:00)
[2024-08-18] MEDS ORDERED: Eplerenone 25 MG Tab PO SCH (09:00)
== END 2024-08-17 17:03 | DRG 280 ==
LOC: ER 12:25 → MEDS 12:26
PROVIDERS: Family Medicine; Internal Medicine Interventional Cardiology; Internal Medicine Nephrology; Student in an Organized Health Care Education/Training Program; ADMIT Internal Medicine
DX: I13.0 Hypertensive heart and chronic kidney disease with heart failure and stage 1 through stage 4 chronic kidney disease, or unspecified chronic kidney disease (principal); I50.43 Acute on chronic combined systolic (congestive) and diastolic (congestive) heart failure; I21.09 ST elevation (STEMI) myocardial infarction involving other coronary artery of anterior wall; J96.01 Acute respiratory failure with hypoxia; J96.02 Acute respiratory failure with hypercapnia; N17.9 Acute kidney failure, unspecified; N18.4 Chronic kidney disease, stage 4 (severe); I24.89 Other forms of acute ischemic heart disease; L03.116 Cellulitis of left lower limb; N25.81 Secondary hyperparathyroidism of renal origin; E87.1 Hypo-osmolality and hyponatremia; J84.9 Interstitial pulmonary disease, unspecified; Z66 Do not resuscitate; I25.5 Ischemic cardiomyopathy; I48.0 Paroxysmal atrial fibrillation; I25.10 Atherosclerotic heart disease of native coronary artery without angina pectoris; Z28.21 Immunization not carried out because of patient refusal; Z79.01 Long term (current) use of anticoagulants; Z95.5 Presence of coronary angioplasty implant and graft; Z79.82 Long term (current) use of aspirin; Z79.02 Long term (current) use of antithrombotics/antiplatelets; Z79.899 Other long term (current) drug therapy; Z88.5 Allergy status to narcotic agent; D63.1 Anemia in chronic kidney disease; E88.09 Other disorders of plasma-protein metabolism, not elsewhere classified
CPT/HCPCS: 0241U; 36415; 71045; 71046; 80048; 80053; 80069; 82803; 82947; 83735; 83880; 84100; 84484; 85014; 85018; 85025; 93005; 93010; 93971; 94640; 94664; 94760; 94762; 96374; 97110; 97162; 97165; 97530; 97530-CQ; 97535; 99285-25; A9270; G0378; J0690; J1940; J2470; J3480; J7050; P9047

== ENCOUNTER 2024-08-31 07:11 | Inpatient (IN) | payer MEDICARE ==
[~2024-08-31] VITALS: Ht 188 cm; Wt 90.6 kg
[~2024-08-31 07:11] MED LIST changes: +Acetaminophen650 M1 PO; +EPLE25 PO; +Isosorbide Mono60 MG PO; +MELATONIN5 M1 PO; +MIDODRINE HCL10 M1 PO; +Nicoderm Cq1 EAC1 TOP; +PANT20 PO; +POTA10T PO; +Ventolin5 MG/1 ML INH
[2024-08-31] MEDS ORDERED: Ipratropium/Albuterol SulF 2.5-0.5MG/3 ML Amp INH ONE (07:20)
[2024-08-31 07:29] LABS: BASOPHILS ABSOLUTE AUTO 0.07 K/mm3 (0.00-0.23); BASOPHILS PERCENT AUTO 1 % (0-2); EOSINOPHILS ABSOLUTE AUTO 0.08 K/mm3 (0.00-0.68); EOSINOPHILS PERCENT AUTO 1 % (0-6); Hematocrit 32.5 % (37.0-53.0); Hemoglobin 10.3 g/dL (13.5-17.5); IMMATURE GRAN PERCENT AUTO 1 % (0-1); LYMPHOCYTES ABSOLUTE AUTO 1.82 K/mm3 (0.84-5.20); LYMPHOCYTES PERCENT AUTO 12 % (21-46); MONOCYTES ABSOLUTE AUTO 0.76 K/mm3 (0.16-1.47); MONOCYTES PERCENT AUTO 5 % (4-13); Mean Corpuscular HGB Conc 31.7 g/dL (31.5-36.5); Mean Corpuscular Volume 95 fL (80-100); Mean Platelet Volume 9.4 fL (9.1-12.4); NEUTROPHILS ABSOLUTE AUTO 12.03 K/mm3 (1.96-9.15); NEUTROPHILS PERCENT AUTO 81 % (41-73); Platelet Count 341 K/mm3 (150-400); RDW Coefficient Variation 17.4 % (11.7-14.2); RDW Standard Deviation 58.5 fL (35.1-46.3); Red Blood Cell Count 3.43 M/mm3 (4.30-5.90); White Blood Cell Count 14.86 K/mm3 (4.00-11.30)
[2024-08-31 07:33] LABS: Base Excess Venous 5.4 mmol/L; Bicarbonate Venous 27.9 mmol/L (24.0-30.0); PCO2 Venous 47.7 mmHg (38-42); pH Blood Venous 7.41 (7.34-7.37)
[2024-08-31] MEDS ORDERED: Bumetanide 0.25 MG/ML 10ML Vial IV ONE (07:50)
[2024-08-31 07:55] LABS: Albumin, Blood 3.1 g/dL (3.4-5.0); Albumin/Globulin Ratio 0.6 (0.8-1.8); Bilirubin, Total 1.3 mg/dL (0.1-1.0); Bun/Creatinine Ratio 27.4 (12.0-20.0); Calcium, Blood 8.9 mg/dL (8.5-10.1); Creatinine, Blood 1.97 mg/dL (0.60-1.20); Globulin, Blood 5.2 g/dL (2.2-4.0); Potassium, Blood 4.2 mmol/L (3.5-5.5); Total Protein, Blood 8.3 g/dL (6.4-8.2)
[2024-08-31 08:25] LABS: Influenza A, PCR NEGATIVE (NEGATIVE); Influenza B, PCR NEGATIVE (NEGATIVE); Resp Syncytial Virus, PCR NEGATIVE (NEGATIVE); SARS-Cov-2 (COVID-19) PCR, MMC NEGATIVE (NEGATIVE)
[2024-08-31] MEDS ORDERED: Azithromycin 500 MG in NS 250 ML IV ONE (09:25)
[2024-08-31] MEDS ORDERED: CefTRIAXone Sodium 1,000 MG in NS 50 ML IV ONE (09:25)
[2024-08-31] MEDS ORDERED: FLU VACC TS2024-25(6MOS UP)/PF 45 MCG/0.5 ML SYRINGE IM PRN (09:40)
[2024-08-31 11:48] VITALS: BP 115/95
[2024-08-31] MEDS ORDERED: Albuterol 2.5 MG/3 ML VIAL INH PRN (11:50)
--- NOTE | 2024-08-31 12:23 | NUR ---
arrival to pcu pateint arrived to pcu from ER via gurny and transfered to pcu bed via slider sheet. vital signs stable. tele afib with a bundle branch block 100-110s. spo2 >90% on bipap with a 8l bleed in. patient is alert and oriented x4. neuro is intact. patient is able to make needs known. denies chest pain/pressure or pain. reports shortness of breath with activity. patient states improvement from intitially arriving to the hospital. lung sounds clear and dim crackles in bases. see shift assessment for further detials. ras informed of critical lactic level at 5.2 and at this time no new orders placed, and to inform palliative care of readdmission. this rn called palliative care and left message.
--- NOTE | 2024-08-31 12:40 | NUR ---
update call from [facility] that pateint converted tos insu rhythm at 1230
[2024-08-31] MEDS ORDERED: Sennosides 8.6 MG Tab PO PRN (14:20)
[2024-08-31] MEDS ORDERED: Melatonin 5 MG Tablet PO PRN (14:20)
[2024-08-31] MEDS ORDERED: Acetaminophen 325 MG TABLET PO PRN (14:25)
[2024-08-31 16:12] VITALS: BP 120/88
--- NOTE | 2024-08-31 18:17 | NUR ---
shift summary patient switched over to oxymask with respriatory care to eat dinner, per respiratory care patient desatted into the 70s while switching and is on 15l oxymask while eating. patient switched back over to bipap after dinner. spo2 >90%. see previous notes. no acute changes. vitals remain stable.
[2024-08-31] MEDS ORDERED: Ipratropium/Albuterol SulF 2.5-0.5MG/3 ML Amp INH SCH (19:00)
[2024-08-31] MEDS ORDERED: Lactobacil 2-S.Thermo-Bifido 1 1 Cap PO SCH (21:00)
[2024-08-31] MEDS ORDERED: Midodrine 5 MG Tab PO SCH (21:00)
[2024-08-31] MEDS ORDERED: Amiodarone HCl 200 MG Tab PO SCH (21:00)
[2024-08-31] MEDS ORDERED: Apixaban 5 MG Tab PO SCH (21:00)
[2024-08-31 21:07] VITALS: BP 120/82
[2024-09-01 00:03] VITALS: BP 122/90
[2024-09-01 04:19] LABS: BASOPHILS ABSOLUTE AUTO 0.01 K/mm3 (0.00-0.23); BASOPHILS PERCENT AUTO 0 % (0-2); EOSINOPHILS PERCENT AUTO 0 % (0-6); Hematocrit 29.5 % (37.0-53.0); Hemoglobin 9.4 g/dL (13.5-17.5); IMMATURE GRAN ABSOLUTE AUTO 0.05 K/mm3 (0.00-0.10); IMMATURE GRAN PERCENT AUTO 0 % (0-1); LYMPHOCYTES PERCENT AUTO 6 % (21-46); MONOCYTES ABSOLUTE AUTO 0.27 K/mm3 (0.16-1.47); MONOCYTES PERCENT AUTO 2 % (4-13); Mean Corpuscular HGB 29.8 pg (26.0-34.0); Mean Corpuscular HGB Conc 31.9 g/dL (31.5-36.5); Mean Corpuscular Volume 94 fL (80-100); Mean Platelet Volume 9.5 fL (9.1-12.4); NEUTROPHILS PERCENT AUTO 91 % (41-73); Platelet Count 288 K/mm3 (150-400); RDW Coefficient Variation 17.6 % (11.7-14.2); RDW Standard Deviation 58.9 fL (35.1-46.3); Red Blood Cell Count 3.15 M/mm3 (4.30-5.90); White Blood Cell Count 11.53 K/mm3 (4.00-11.30)
[2024-09-01 04:43] LABS: Bun/Creatinine Ratio 28.3 (12.0-20.0); Creatinine, Blood 2.05 mg/dL (0.60-1.20); Potassium, Blood 4.3 mmol/L (3.5-5.5)
[2024-09-01 05:00] VITALS: BP 139/88
--- NOTE | 2024-09-01 06:57 | NUR ---
NOC SHIFT SUMMARY PT ORIENTED X4, VSS, ON BIPAP WITH 8-15L BLEED THRU OVERNIGHT. ANXIOUS WHEN AWAKE. LUNGS DIM W/CRACKLES. ADEQUATE UOP. VSS. DENIES PAIN OR DISCOMFORT. PLEASANT AND COOPEARTIVE. REMAINED ON BIPAP ALL NIGHT, NO BREAKS EXCEPT FOR SMALL SIPS OF WATER. TOLERATED WELL. WILL PASS ON TO DAY RN
[2024-09-01 07:45] VITALS: BP 122/88
[2024-09-01] MEDS ORDERED: Nicotine 14 MG PATCH TOP SCH (09:00)
[2024-09-01] MEDS ORDERED: Atorvastatin 40 MG Tab PO SCH (09:00)
[2024-09-01] MEDS ORDERED: CefTRIAXone Sodium 1,000 MG in NS 100 ML IV SCH (09:00)
[2024-09-01] MEDS ORDERED: NS 250 ML IV PRN (09:00)
[2024-09-01] MEDS ORDERED: Isosorbide Mononitrate 60 MG TABCR PO SCH (09:00)
[2024-09-01] MEDS ORDERED: Azithromycin 500 MG in NS 250 ML IV SCH (09:00)
[2024-09-01] MEDS ORDERED: Metoprolol Succinate 25 MG TABCR PO SCH (09:00)
[2024-09-01] MEDS ORDERED: Bumetanide 0.25 MG/ML 4ML ViaL IV SCH (10:00)
--- NOTE | 2024-09-01 10:59 | NUR ---
am note this rn assumed care at 0700. vital signs stable. tele sinus rhythm 80s. spo2 >90% on bipap with a 13l bleed in. patient is alert and oriented x4. neuro is intact. patient is able to make needs known and uses call light appropriately. denies pain or chest pain. reports shortness of breath with activity and desats when switched to oxymask to eat. see shift assessment for further detials. md mcginnis in room and discussed imaging and plans going forward. discussed hospice and comfort care with the patient. this rn called palliative care to come discuss with patient and anwser further questions. manuela with palliative care came and spoke with the patient. patient agreed to go hospice/comfort care. manuela calling son, rhiannon, to update and speak with him and then will update md mcginnis.
[2024-09-01 12:42] VITALS: BP 102/77
[2024-09-01 14:53] VITALS: BP 102/70
--- NOTE | 2024-09-01 17:42 | NUR ---
shift summary at this time patient is not comfort care but planning to discharge on hospice. no acute changes this shift. see previous notes. vitals remain stable. plan is up to date.
--- NOTE | 2024-09-01 18:09 | NUR ---
MET WITH SHINE THIS MORNING. WE DISCUSSED COMFORT CARE AND HOSPICE. HE HAD CONCERNS ABOUT THE COST OF HIS CARE AND HOW INSURACE WOULD COVER THINGS IF WE CHANGED HIS DIRECTION OF CARE. HE REPORTED THAT HE IS READY TO MAKE THE TRANSITION TO COMFORT CARE IN THE HOSPITAL AND HOSPICE. HE IS CONCERNED THAT HIS FAMILY DOES NOT KNOW HE IS IN THE HOSPITAL AT THIS TIME. I CALLED [facility] ON FILE IT IS HIS LANDLINE AND HE WAS NOT HOME I LEFT A . SHINE EXPRESSED THAT TEE IS [facility] OUT HUNTING BUT HE DOES NOT HAVE HIS CELL PHONE NUMBER MEMORIZED AND HIS CELL PHONE IS AT [facility]. I CALLED [facility] AND WAS ABLE TO GET ISHMAEL CELL NUMBER [phone]. HE EVENTUALLY ANSWERED AND HAD POOR SERVICE. HE REPORTED HE WOULD CALL ME LATER THIS EVENING. I GAVE HIM A BRIEF UPDATE AND LET HIM GO. SERVICE. HE WAS UNAWARE THAT SHINE WAS AT THE [facility]
[2024-09-01 20:29] VITALS: BP 117/85
--- NOTE | 2024-09-01 20:52 | NUR ---
ASSUMPTION OF CARE ASSUMED CARE OF PATIENT AT 1900, BEDSIDE SHIFT REPORT RECEIVED FROM LIA RN. PT RESTING IN BED, ALERT AND ORIENTED X4. PT ANSWERS QUESTIONS APPROPRIATELY, FOLLOWS DIRECTION WHEN PROMTPED AND IS ABLE TO MAKE HIS NEEDS KNOWN. PT MOVES EXTREMITIES EQUALLY BILATERALLY. HR 60'S SINUS, MAP >65. PT DENIES CP/PRESSURE. PT ON 15L VIA OXYMIZER, OXYGEN SATURATION >94%. PT QUICKLY DESATURATES WHEN MASK IS REMOVED FOR PATIENT TO TAKE MEDICATIONS. LUNG SOUNDS COARSE THROUGHOUT. ABDOMEN SOFT, NONTENDER, BOWEL TONES ACTIVE THROUGHOUT. PT DENIES N/V. PT USES URINAL TO VOID. PIV IN PLACE TO LAC SL. BED IN LOWEST POSITION, CALL LIGHT WITHIN REACH, CARE CONTINUES.
--- NOTE | 2024-09-01 21:44 | NUR ---
PT UPDATE THIS RN INFOMRED BY [employer] THAT PT OXYGEN SATURATION IS 83%. THIS RN TO BEDSIDE TO CHECK ON THE PT, PT STATES THAT HE JUST USED THE URINAL AND IT IS NORMAL FOR HIM TO DESATURATE WHILE DOING THIS. THIS RN REMAINED IN THE ROOM, PT OXYGEN SATURATION CONTIUNUES TO BE 81-87% WHILE ON 15L VIA OXYMIZER. RT CALLED AND CAME TO BEDSIDE. PT PLACED ON BIPAP 18/9 50%, OXYGEN SATURATION >95%. CARE CONTINUES.
[2024-09-02] VITALS (7 sets, daily range): BP systolic 104–122; BP diastolic 72–94
[2024-09-02 03:51] LABS: BASOPHILS ABSOLUTE AUTO 0.01 K/mm3 (0.00-0.23); BASOPHILS PERCENT AUTO 0 % (0-2); EOSINOPHILS ABSOLUTE AUTO 0.03 K/mm3 (0.00-0.68); EOSINOPHILS PERCENT AUTO 0 % (0-6); Hematocrit 28.3 % (37.0-53.0); Hemoglobin 9.1 g/dL (13.5-17.5); IMMATURE GRAN ABSOLUTE AUTO 0.07 K/mm3 (0.00-0.10); IMMATURE GRAN PERCENT AUTO 0 % (0-1); LYMPHOCYTES ABSOLUTE AUTO 1.68 K/mm3 (0.84-5.20); LYMPHOCYTES PERCENT AUTO 9 % (21-46); MONOCYTES ABSOLUTE AUTO 0.82 K/mm3 (0.16-1.47); MONOCYTES PERCENT AUTO 5 % (4-13); Mean Corpuscular HGB 30.1 pg (26.0-34.0); Mean Corpuscular HGB Conc 32.2 g/dL (31.5-36.5); Mean Corpuscular Volume 94 fL (80-100); Mean Platelet Volume 9.3 fL (9.1-12.4); NEUTROPHILS ABSOLUTE AUTO 15.46 K/mm3 (1.96-9.15); NEUTROPHILS PERCENT AUTO 86 % (41-73); Platelet Count 307 K/mm3 (150-400); RDW Coefficient Variation 17.8 % (11.7-14.2); RDW Standard Deviation 58.9 fL (35.1-46.3); Red Blood Cell Count 3.02 M/mm3 (4.30-5.90); White Blood Cell Count 18.07 K/mm3 (4.00-11.30)
[2024-09-02 04:14] LABS: Bun/Creatinine Ratio 33.2 (12.0-20.0); Calcium, Blood 8.5 mg/dL (8.5-10.1); Creatinine, Blood 2.08 mg/dL (0.60-1.20); Potassium, Blood 4.2 mmol/L (3.5-5.5)
--- NOTE | 2024-09-02 05:32 | NUR ---
SHIFT SUMMARY PT CONTINUES TO REST IN BED, SLEEPING BUT AROUSABLE. PT ANSWERS QUESTIONS APPROPRIATELY, FOLLOWS DIRECTION WEHN PROMPTED AND IS ABLE TO MAKE HIS NEEDS KNOWN. PT USES CALL LIGHT APPROPRIATELY. PT MOVES EXTREMITIES EQUALLY BILATERALLY, DENIES PAIN THIS SHIFT. HR 60-70'S SINUS, MAP >65. PT DENIES CP/PRESSURE THIS SHIFT. PT PLACED ON BIPAP THIS SHIFT, 18/9 55%, OXYGEN SATURATION >90%, PT QUICKLY DESATURATES WHEN OXYGEN IS REMOVED. ABDOMEN SOFT, BOWEL TONES ACTIVE THROUGHOUT, NO BM THIS SHIFT. PT USES URINAL TO VOID. PIV IN PLACE TO LAC SL. BED IN LOWEST POSITION, CALL LIGHT WITHIN REACH, CARE CONTINUES.
--- NOTE | 2024-09-02 08:47 | NUR ---
PT WAS TAKEN OFF BIPAP AND PLACED ON 10L OXI MASK FOR A BREAK AND TO GET SOME PO INTAKE. PT WAS ONLY ABLE TO TOLERATE BEING OFF OF THE BIPAP FOR APPROX 20 MINUTES UNTIL HE STATRED TO DESAT INTO THE LOW 80'S. PT WAS PLACED BACK ON BIPAP. O2 SATS RECOVERED. IS NOW MAINTAINING O2 SATS >90%. BIPAP SETTING 12/6 55%.
--- NOTE | 2024-09-02 17:16 | NUR ---
SHIFT SUMMARY: PT ALERT AND ORIENTED X4. FOLLOWS COMMANDS AND MAKES NEEDS KNOWN TO STAFF. PT WAS ON BIPAP AT BEGINING OF SHIFT AND WAS PLACED ON AIRVO AT APPROX 0935. SEE PREVIOUS NOTE. PT HAS REMAINED ON AIRVO. MAINTAINGING O2 SATS >88%. PT DESATS WITH EXTERTION BUT RECOVERS WELL. PALLIATIVE CARE CAME AND TALKED WITH FAMILY AND PT TODAY. IT SOUNDS LIKE PT AND FAMILY ARE LEANING TOWARDS COMFORT CARE, BUT NO DEFINITE PLAN HAS BEEN MADE YET. PT HAS BEEN SOB OFF AND ON EXPECTED BUT HAS DENIED ANY CP, PRESSURE, OR TIGHTNESS. PT HAS USED URINAL IN BED DUE TO NOT TOLERATING ACTIVITY. PT HAD A MODERATE AMOUNT OF URINE OUTPUT TODAY. NO SIGNIFICANT EVENTS HAPPENED DURING THIS SHIFT. WILL CONTINUE TO CARE FOR PT TILL END OF SHIFT.
--- NOTE | 2024-09-02 17:26 | NUR ---
MET WITH SHINE AND HIS SON TEE, AND [facility]. KRYSTAL RESPIRATORY STATUS APPEARED IMPROVED TODAY. DR. DE LA CRUZ AND MYSELF EXPRESSED CONCERNS THAT SHINE MAY NO BE ABLE TO SUCCESSFULLY TRANSITION BACK TO A [place]. FAMILY WANTED TO DISCUSS OPTIONS BEFORE MAKING A DECISION. FAMILY IS OPEN TO TAKING SHINE HOME WITH HOSPICE AND SHINE IS OPEN TO THIS. PROVIDED A LIVING WILL PER REQUEST. PATIENTS ELDEST SON ZEINAB CAME TO VISIT THIS AFTERNOON. I WAS AT BEDSIDE UPON HIS ARRIVAL. WE HAD A BRIEF DISCUSSION AND I LEFT TO ALLOW THEM TO VISIT.
--- NOTE | 2024-09-02 21:48 | NUR ---
ASSUMPTION OF CARE AFTER RECEIVING REPORT FROM LIBAN FREY, THIS RN ASSUMED CARE AT APPROX 1915. PATIENT ALERT AND ORIENTED X4. COMMUNICATES NEEDS EFFECTIVELY. MOVES ALL EXTREMITIES EQUALLY. LIMITED MOBILITY DUE TO RESPIRATORY STATUS. TELEMETRY SHOWING SINUS 70s. BP STABLE, SBP 110s. MAP >65. DENIES CHEST PAIN, PRESSURE. ALTERNATES BETWEEN HEATED HIGH FLOW 50L 75% AND CPAP, SATs >90% AT REST. DOES DESAT <88% WITH MOBILITY. SLOW TO RECOVER. ENCOURAGING Q2H REPOSITIONING DUE TO LIMITED MOBILITY. USES URINAL INDEPENDENTLY. PATIENT REQUESTING SOMETHING TO HELP HIM SLEEP, ADMINISTERED PO MELATONIN PER EMAR. CALL LIGHT IN REACH.
[2024-09-03 03:01] VITALS: BP 130/96
[2024-09-03 03:58] LABS: BASOPHILS ABSOLUTE AUTO 0.01 K/mm3 (0.00-0.23); BASOPHILS PERCENT AUTO 0 % (0-2); EOSINOPHILS ABSOLUTE AUTO 0.21 K/mm3 (0.00-0.68); EOSINOPHILS PERCENT AUTO 2 % (0-6); Hematocrit 28.7 % (37.0-53.0); Hemoglobin 9.1 g/dL (13.5-17.5); IMMATURE GRAN ABSOLUTE AUTO 0.08 K/mm3 (0.00-0.10); IMMATURE GRAN PERCENT AUTO 1 % (0-1); LYMPHOCYTES ABSOLUTE AUTO 1.57 K/mm3 (0.84-5.20); LYMPHOCYTES PERCENT AUTO 12 % (21-46); MONOCYTES PERCENT AUTO 6 % (4-13); Mean Corpuscular HGB 29.6 pg (26.0-34.0); Mean Corpuscular HGB Conc 31.7 g/dL (31.5-36.5); Mean Corpuscular Volume 94 fL (80-100); Mean Platelet Volume 9.6 fL (9.1-12.4); NEUTROPHILS ABSOLUTE AUTO 10.82 K/mm3 (1.96-9.15); NEUTROPHILS PERCENT AUTO 80 % (41-73); Platelet Count 287 K/mm3 (150-400); RDW Coefficient Variation 17.6 % (11.7-14.2); RDW Standard Deviation 58.5 fL (35.1-46.3); Red Blood Cell Count 3.07 M/mm3 (4.30-5.90); White Blood Cell Count 13.49 K/mm3 (4.00-11.30)
[2024-09-03 04:18] LABS: Calcium, Blood 8.3 mg/dL (8.5-10.1); Potassium, Blood 3.8 mmol/L (3.5-5.5)
--- NOTE | 2024-09-03 05:02 | NUR ---
SHIFT SUMMARY NO ACUTE EVENTS SINCE ASSUMPTION OF CARE NOTE. PATIENT SLEPT OR RESTED QUIETLY THROUGHOUT NIGHT, EASILY AROUSABLE WITH VERBAL STIMULI. AFEBRILE. DENIES PAIN. TELEMETRY SHOWING SINUS 60s-70s. BP STABLE, SBP 110s-130s. MAP >65. DENIES CHEST PAIN, PRESSURE. ALTERNATING BETWEEN CPAP AND HEATED HIGH FLOW 50L 76%, SATs >88%. RR SHALLOW, TACHYPNEIC 22-28. DESATs WITH ACTIVITY AND COUGHING, SLOW TO RECOVER. USES URINAL INDEPENDENTLY IN BED. DOES REPORT OCCASIONAL NIGHT TIME URINARY, BOWEL INCONTINENCE. ASSISTING WITH ATTENDS CHANGE PRN. ENCOURAGING Q2H REPOSITIONING, PATIENT DECLINING AT TIMES. CALL LIGHT IN REACH. WILL CONTINUE TO MONITOR AND REPORT TO ONCOMING RN.
[2024-09-03 07:38] VITALS: BP 120/87
[2024-09-03] MEDS ORDERED: PANT20 PO (10:02)
[2024-09-03 12:19] VITALS: BP 113/80
--- NOTE | 2024-09-03 12:59 | NUR ---
NURSE NOTE FAMILY AT BEDSIDE, SON TEE WOULD LIKE TO WORK TOWARDS GETTING PATIENT TO HIS HOME ON HOSPICE. PATIENT AGREEABLE WITH THIS PLAN. PATIENT IS A+OX4, ABLE TO MAKE NEEDS KNOWN. CALL LIGHT IN REACH.
[2024-09-03 14:20] VITALS: BP 114/84
[2024-09-03] MEDS ORDERED: Scopolamine Hydrobromide Patch TOP PRN (16:35)
[2024-09-03] MEDS ORDERED: LORazepam 2 MG/ML 1ML Injection IV PRN (16:40)
[2024-09-03] MEDS ORDERED: Morphine Sulfate 20 MG/1ML 1 ML Oral Syringe SL PRN (16:40)
[2024-09-03] MEDS ORDERED: Morphine Sulfate 10 MG/ML 1MLSYR IV PRN (16:40)
[2024-09-03] MEDS ORDERED: Haloperidol Lactate Inj. 5 MG/ML Injection IV PRN (16:40)
[2024-09-03] MEDS ORDERED: Atropine Sulfate 1% Opth Soln 2ML BTL SL PRN (16:40)
[2024-09-03 17:01] VITALS: BP 113/82
--- NOTE | 2024-09-03 17:06 | NUR ---
NURSE NOTE DR. SALDANA ROUNDED ON PATIENT TO DISCUSS PLAN OF CARE. PATIENT AND FAMILY WISH TO TRANSITION TO COMFORT CARE/ HOSPICE AND WOULD LIKE TO GET PATIENT HOME. RT CALLED TO BEDSIDE TO TRASITION PATIENT OFF OF HIGH FLOW OXYGEN AT THE REQUEST OF DR. SALDANA. PATIENT IS CURRENTLY ON 15 LITERS AND SATURATING AT 85%. PATIENT HAS BEEN MEDICATED W/ ROXANOL TO HELP WITH AIR HUNGER. FAMILY AT BEDSIDE, CALL LIGHT IN REACH.
--- NOTE | 2024-09-03 17:38 | NUR ---
SHIFT SUMMARY PATIENT HAS TRANSITIONED TO COMFORT CARE. MEDICATED PER EMAR. FAMILY REMAINS AT BEDSIDE. PATIENT IS A+O X4, B/P STABLE. OXYGEN SATURATION BETWEEN 85-89%. USING URINAL IN BED FOR VOIDS. PATIENT STATES HE IS COMFORTABLE AT THIS TIME. CALL LIGHT IN REACH. WILL CONTINUE TO TREAT UNTIL SHIFT CHANGE.
--- NOTE | 2024-09-03 21:08 | NUR ---
ASSUMPTION OF CARE AFTER RECEIVING REPORT FROM WILIAM FREY, THIS RN ASSUMED CARE AT APPROX 1915. PATIENT ALERT AND ORIENTED X4. COMMUNICATES NEEDS WITH ONE TO TWO WORD STATEMENTS. MOVES ALL EXTREMITIES EQUALLY WITH WEAKNESS, LIMITED MOBILITY DUE TO RESPIRATORY STATUS. ON BIPAP WITH CPAP SETTING. INCREASED WORK OF BREATHING, RR 30s-40s. MEDICATED PER EMAR WITH ROXANOL AND IV ATIVAN. IS ABLE TO DANGLE AT SIDE OF BED TO USE URINAL, BUT DOES EXPERIENCE EPISODES OF URINARY, BOWEL INCONTINENCE. CHANGING ATTENDS PRN TO KEEP C/D/I. CALL LIGHT IN REACH. SON AT BEDSIDE. WILL CONTINUE TO MONITOR.
--- NOTE | 2024-09-04 05:54 | NUR ---
SHIFT SUMMARY NO ACUTE EVENTS SINCE ASSUMPTION OF CARE NOTE. PATIENT SLEPT THROUGHOUT NIGHT, EASILY AROUSABLE WITH VERBAL STIMULI. LETHARGIC. COMMUNICATING NEEDS EFFECTIVELY. REMAINS ON CPAP THROUGHOUT NIGHT, SATs 85-92%. MEDICATED PER EMAR WITH ATIVAN AND IV ROXANOL FOR PATIENT COMFORT. USING URINAL IN BED. OCCASIONAL INCONTINENCE EPISODES - CHANGING ATTENDS PRN TO KEEP C/D/I. OFFERING REPOSITIONING. CALL LIGHT IN REACH. SON AT BEDSIDE. WILL CONTINUE TO MONITOR AND REPORT TO ONCOMING RN.
--- NOTE | 2024-09-04 07:24 | NUR ---
ASSUMING CARE ASSUMED CARE OF PATIENT AT 0700. PATIENT IS SITTING UP IN BED ON AIRVO AT THIS TIME, DRINKING A CUP OF COFFEE. PATIENT SON IS AT BEDSIDE. CALL LIGHT IN REACH.
--- NOTE | 2024-09-04 17:32 | NUR ---
SHIFT SUMMARY PATIENT REMAINS ON COMFORT CARE THROUGHTOUT THIS SHIFT. PATIENT HAS BEEN TIRTATED DOWN TO 15 LITERS O2 70% FI02. PATIENT HAS RESTED ON AND OFF THROUGHT OUT SHIFT. PATIENT WAS PROVIDED A BED BATH, LOTION APPLIED, LIEN CHANGE, AND CHAPSTICK APPLIED TO LIPS. MEDICATED WITH COMFORT CARE MEDICATIONS PER PATIENT WOB AND REQUEST. FAMILY HAS BEEN IN AND OUT VISITING TODAY. PATIENT STILL ABLE TO MAKE NEEDS KNOWN. CALL LIGHT IN REACH.
--- NOTE | 2024-09-04 20:20 | NUR ---
UPDATE PT NOTED TO HAVE INCREASED WORK OF BREATHING WELL INCREASED AIRHUNGER. FREQUENT APNEIC EPISODES NOTED WELL WITH SPO2 <50% WITH AIRVO USE, PT REFUSING BIPAP AT THIS TIME. PRIMARY RN PATRIC SY MEDICATING PT PER EMAR. THIS RN CONTACTED PT'S SON (TEE) WITH UPDATE. TEE TO COME TO BEDSIDE. DR. MENDES NOTIFIED WELL.
--- NOTE | 2024-09-04 21:21 | NUR ---
ASSUMPTION OF CARE AFTER RECEIVING REPORT FROM WILIAM FREY, THIS RN ASSUMED CARE AT APPROX 1915. INITIALLY, PATIENT ALERT TO VERBAL STIMULI - DIFFICULTY COMMUNICATING NEEDS DUE TO INCREASED WORK OF BREATHING. PATIENT ON AIRVO 50L 50%, SATs <80%. MEDICATED PER EMAR WITH ATIVAN AND ROXANOL. DISCUSSED USE OF CPAP MASK FOR COMFORT - PATIENT DECLINED USE. PATIENT INCONTINENT OF URINE - DISCUSSED PLACING [place]O FOR COMFORT. PATIENT REQUESTING CATHETER - INSERTED PER BLADDER MANAGEMENT DOCUMENTATION. SKIN DUSKY, MOTTLED, COOL TO TOUCH. PATIENT UNRESPONSIVE AT THIS TIME. UNABLE TO COMMUNICATE NEEDS - GRUNTING/MOANING OUT. JAROD-MEJIA BREATHING, INCREASED WORK OF BREATHING. MEDICATED PER EMAR FOR COMFORT. SATs <50%. MOBILE DEVELOPMENT MANAGER GIA CONTACTED SON - FAMILY NOW AT BEDSIDE. AIRVO REMAINS IN PLACE AT FAMILYs REQUEST. WILL CONTINUE TO MONITOR.
--- NOTE | 2024-09-04 23:02 | NUR ---
FINAL DISCHARGE THIS RN TO ROOM TO ROUND. PATIENT NOTED TO HAVE NO CHEST RISE - OXYGEN SATs NO LONGER READING. NO BREATH OR HEART SOUNDS NOTED UPON AUSCULTATION. NO PALPABLE PULSES. SCALLOPERTK NIELSEN CALLED TO ROOM SECOND VALIDATING RN. TIME OF 2254. SEE PRONOUNCEMENT DOCUMENTATION. MD MENDES CONTACTED. FAMILY AT BEDSIDE. SCALLOPER GIA PROVIDED EDUCATION REGARDING ORGAN DONATION, HOME PREFERENCE AND PROCESS. PATIENTs DAUGHTER IS ON HER WAY [facility] REQUESTING TO WAIT TO BEGIN PROCESS AFTER HIS DAUGHTER ARRIVES.
--- NOTE | 2024-09-04 23:46 | NUR ---
PER FAMILY, PATIENTs DAUGHTER IS NO LONGER PLANNING TO COME TO HOSPITAL, SO FAMILY HAS LEFT BEDSIDE. POST MORTEM CARE PERFORMED. PERSONAL BELONGINGS INCLUDE A PAIR OF GLASSES AND A PHONE COMPUTER APPLICATIONS DEVELOPER. BELONGINGS WITH PATIENT.
--- NOTE | 2024-09-05 03:09 | NUR ---
ALICJA RECEIVED CALL FROM RAJESH AT THE ORGAN DONATION LINE CONFIRMING PT IS NOT A CANDIDATE FOR DONATION. CALL PLACED TO PT'S SON TEE FOR UPDATE
--- NOTE | 2024-09-05 04:04 | NUR ---
[facility] ARRIVED TO TRANSFER PATIENT. PATIENT TRANSFERRED OFF UNIT WITH PERSONAL BELONGINGS AT APPROX [id number].
== END 2024-09-05 04:08 | DRG 871 ==
LOC: ER 07:11 → PCU 09:39
PROVIDERS: Student in an Organized Health Care Education/Training Program; ADMIT Family Medicine
PROC: 5A09457 Assistance with Respiratory Ventilation, 24-96 Consecutive Hours, Continuous Positive Airway Pressure (ICD-10-PCS; principal; 2024-08-31)
PROC: 3E03329 Introduction of Other Anti-infective into Peripheral Vein, Percutaneous Approach (ICD-10-PCS; 2024-08-31)
PROC: 5A0935A Assistance with Respiratory Ventilation, Less than 24 Consecutive Hours, High Flow/Velocity Cannula (ICD-10-PCS; 2024-09-02)
DX: A41.9 Sepsis, unspecified organism (principal); I50.43 Acute on chronic combined systolic (congestive) and diastolic (congestive) heart failure; J96.21 Acute and chronic respiratory failure with hypoxia; R65.21 Severe sepsis with septic shock; J96.22 Acute and chronic respiratory failure with hypercapnia; J18.9 Pneumonia, unspecified organism; Z66 Do not resuscitate; Z51.5 Encounter for palliative care; I13.0 Hypertensive heart and chronic kidney disease with heart failure and stage 1 through stage 4 chronic kidney disease, or unspecified chronic kidney disease; E87.20 Acidosis, unspecified; N18.30 Chronic kidney disease, stage 3 unspecified; I48.0 Paroxysmal atrial fibrillation; I25.10 Atherosclerotic heart disease of native coronary artery without angina pectoris; F17.210 Nicotine dependence, cigarettes, uncomplicated; I25.5 Ischemic cardiomyopathy; I25.2 Old myocardial infarction; Z88.5 Allergy status to narcotic agent; Z79.01 Long term (current) use of anticoagulants; Z79.899 Other long term (current) drug therapy; Z86.79 Personal history of other diseases of the circulatory system; Z95.5 Presence of coronary angioplasty implant and graft
CPT/HCPCS: 0241U; 36415; 71045; 80048; 80053; 82803; 83605; 83735; 83880; 84145; 85025; 87040; 87070; 87077; 87186; 87205; 93005; 93010; 94640; 94660; 94664; 94762; 96374; 99285-25; A9270; J0456; J0696; J2060; J2270; J7050